=== PATIENT | male | born 1940 | race Caucasian/White ===

== ENCOUNTER → 2019-12-05 16:22 | Outpatient (CLI) | payer MEDICARE, SELFPAY ==
[2019-12-05 16:58] LABS: Absolute Lymphocyte Count 2.13 X10^3/uL (0.83-4.51); Absolute Neutrophil Count 7.8 X10^3/uL (2.0-7.7); Basophil# 0.06 X10^3/uL; Basophil% 0.5 % (0-1); Eosinophil# 0.22 X10^3/uL; Eosinophils% 1.9 % (0-5); Hematocrit 35.1 % (40-54); Hemoglobin 11.6 g/dL (13.0-16.5); Lymphocyte # 2.13 X10^3/ul (4.0); Lymphocyte % 18.7 % (19-41); Mean Corpuscular Hgb 30.1 pg (27.0-32.0); Mean Corpuscular Volume 91.2 fL (80-94); Mean Platelet Vol. 11.8 fl (6.2-12.0); Monocyte# 1.14 X10^3/uL; NRBC Flagged by Analyzer 0 % (0-5); Neutrophil # 7.79 X10^3/uL (2.7-7.7); Neutrophil % 68.2 % (47-70); Platelet Count 321 K/mm3 (150-450); RBC Distribution Width CV 13.3 % (11.6-14.6); RBC Distribution Width SD 44.3 fl (35.1-43.9); Red Blood Count 3.85 M/mm3 (4.6-6.2); White Blood Count 11.4 K/mm3 (4.4-11.0)
[2019-12-05 17:05] LABS: Erythrocyte Sedimentation Rate 53 mm/hr (0-20)
[2019-12-05 17:21] LABS: ALB/GLOB Ratio 0.7 RATIO (0.9-2.4); AST(SGOT) 34 U/L (15-37); Alanine Aminotransfer ALT/SGPT 39 U/L (16-61); Albumin, Serum 2.9 g/dL (3.2-5.0); Alkaline Phosphatase 167 U/L (45-117); Anion Gap 7 (5-15); BUN 31 mg/dL (7-18); BUN/Creat Ratio 16.8 RATIO (10-20); Calcium,Total 8.7 mg/dL (8.5-10.1); Chloride 105 mmol/L (98-107); Creatinine, Serum 1.85 mg/dL (0.70-1.30); EST Glomerular Filtration Rate 37 mL/min (>60); Est Glom Filt Rate - Afr Amer 45 mL/min (>60); Globulin 4.1 g/dL (2.2-4.2); Glucose 157 mg/dL (74-106); Potassium 4.2 mmol/L (3.5-5.1); Sodium Level 136 mmol/L (136-145)
== END ==
PROVIDERS: PCP Family Medicine; Referring Provider Nurse Practitioner Primary Care; Visit Provider Nurse Practitioner Primary Care
DX: R10.33 Periumbilical pain (principal); R63.4 Abnormal weight loss
CPT/HCPCS: 80053; 85025; 85652

== ENCOUNTER → 2019-12-12 17:00 | Outpatient (CLI) | payer MEDICARE, SELFPAY ==
[2019-12-11 13:38] VITALS: BMI 34.3
--- NOTE | 2019-12-15 12:18 | HP_ITS ---
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 Accompanied by: Son Is patient in pain?: Yes Allergies No Known Allergies Allergy (Unverified 12/15/19 07:17) Medications atorvastatin 40 mg tablet 40 mg PO DAILY 12/11/19 [History Confirmed 12/15/19] carvedilol 25 mg tablet 25 mg PO BID 12/11/19 [History Confirmed 12/15/19] lisinopril 10 mg-hydrochlorothiazide 12.5 mg tablet 1 tab PO DAILY 12/11/19 [History Confirmed 12/15/19] [facility] Medical History ASHD (arteriosclerotic heart disease) (Acute) Abdominal pain (Acute) Arthritis (Acute) Hyperlipidemia (Acute) Obesity (Acute) Psoriasis (Acute) Chronic kidney disease (Chronic) Hypertension (Chronic) Surgical History History of heart artery stent (Acute) History of hernia surgery (Acute) Social History (Updated 12/15/19 @ 12:[address] Aramis Del Rosario MD) Smoking Status: Never smoker alcohol intake: never substance use type: does not use HPI HPI HPI: HEATHER HERNANDEZ, is a 79 M who presents to the office today for HPI HPI Surgical H&P: Yes HPI: HEATHER HERNANDEZ, is a 79 M who presents to the office today for Evaluation for endoscopy. Patient had a recent CAT scan completed at the [facility] which showed bowel wall thickening with irregularity visualized in the duodenum predominantly involving the second segment with soft tissue stranding. Patient has had a loss in appetite for about the last 3 to 4 weeks he is lost 15 pounds. He has stopped his 79 aspirin and his Mobic. ROS General General: Yes weight change; no appetite, fatigue, colon cancer, breast cancer or weakness HEENT HEENT: No difficulty swallowing, eye injury, eye surgery, swollen glands or hoarseness Endo Endocrine: No thyroid disease, diabetes mellitus, thyroid cancer, Hair loss, heat intolerance or cold intolerance Skin Skin: No rash or changing moles Breast Breast: No left breast lump, right breast lump, nipple discharge, breast pain, abnormal mammogram, abnormal US or breast enlargement Musc Musculoskeletal: Yes arthritis; no back problems, rheumatoid arthritis, gout or joint pain Cardio Cardiovascular: Yes heart disease, high blood pressure and heart stent; no murmur, pacemaker, atrial fibrillation, heart attack, palpitations, shortness of breat with exertion or chest pain Psych Psychiatric: No depression, anxiety or hearing voices Resp Respiratory: No shortness of breath, No sleep apnea, No cough, No COPD, No asthma, No emphysema, No wheezing Gastro Gastrointestinal: Yes abdominal pain, Yes nausea or vomiting, No diarrhea, No constipation, No blood in stool, No acid reflux, No hemorrhoids, No ulcers, No gallbladder problem, No black,tarry stools [place] Hematologic: No blood thinners, No blood disorders, No bleeding, No anemia, No blood clots Neuro Neurologic: No system reviewed and no additional complaints, except as docu, No as per HPI, No abnormal walking, No abnormal hearing, No abnormal movements, No abnormal speech, No behavioral changes, No burning sensations, No confusion, No seizure-like activity, No unsteadiness, No dizziness, No localized weakness, No frequent falls, No headache(s), No lack of coordination, No loss of vision, No memory loss, No numbness, No other visual disturbances, No radiating pain, No restless legs, No sensory deficit, No fainting, No tingling, No tremor(s), No weakness, No other Exam Const General: no acute distress, well developed, well hydrated Orientation: oriented to person, oriented to place, oriented to time [facility] Head: normocephalic, atraumatic Ears: external ears normal Mouth: moist mucous membranes Eyes Sclera: sclerae normal Pupils: normal by confrontation Neck Neck: no lymphadenopathy noted Neck mass: No Thyroid: thyroid normal, symmetrical Chest Chest palpation & inspection: normal inspection of the chest Breast Palpation: No nipple discharge Resp Effort & Inspection: normal respiratory effort Auscultation: clear to auscultation bilaterally Percussion: percussion normal Cardio Rate: regular rate Rhythm: regular rhythm Heart Sounds: no murmurs GI Palpation: soft, no hepatosplenomegaly, no masses, nontender Rectal Exam: other Other: Rectal exam deferred. Extrem General: normal to inspection, no clubbing, cyanosis or edema Assessment & Plan Problems 1. Abnormal CT scan, gastrointestinal tract R93.3 Plan I have discussed the above with the patient. I have offered the patient esophagogastroduodenoscopy for evaluation. I have explained the risks/benefits of the procedure and described the procedure. I have discussed the risks with the patient, including but not limited to: infection, bleeding, perforation of the GI tract requiring emergency surgery, inability to complete the procedure, injury to any internal organs, complications of anesthesia, etc. - the patient understands and agrees to proceed. I have answered all the patient's questions to the patient's satisfaction and the patient has no further questions. The patient has been given instructions for the colon cleansing preparation. Coding Level of Care Code Off vis,new,level [address] scan, gastrointestinal tract R93.3 COVID (Procedure Consent) Procedure Criteria Procedure Criteria: Yes Elective The surgeon/proceduralist and patient have discussed in detail the risk of exposure to and/or potential harm posed by the COVID-19 virus with having a surgery/procedure at this time versus the risk of? delaying the surgery/procedure. It is not possible to know either the risk of delaying the surgery or procedure or chance of getting an infection with perfect accuracy, but a joint decision was made between the patient and the surgeon/proceduralist ?to proceed at this time with the scheduled surgery/procedure as indicated on the consent form. 12/15/19 1219 <Electronically signed by Aramis robbins MD> Date _ Aramis Del Rosario MD
== END ==
PROVIDERS: Anesthesiology; PCP Family Medicine; Visit Provider Surgery
DX: Z11.59 Encounter for screening for other viral diseases (principal)
CPT/HCPCS: 87635; 94799; U0003

== ENCOUNTER 2019-12-15 07:16 | Observation (INO) | payer MEDICARE, SELFPAY ==
[2019-12-11 13:38] VITALS: BMI 34.3
[2019-12-15] VITALS (7 sets, daily range): BP systolic 81–136; BP diastolic 54–73; PULSE 58–69; RESP 16–18; TEMP 36.1–36.7; O2SAT 96–100; BMI 32.4; BMI 32.8; BMI 33.7
[2019-12-15 07:58] LABS: Absolute Lymphocyte Count 1.91 X10^3/uL (0.83-4.51); Absolute Neutrophil Count 12.7 X10^3/uL (2.0-7.7); Basophil# 0.07 X10^3/uL; Basophil% 0.4 % (0-1); Eosinophil# 0.07 X10^3/uL; Eosinophils% 0.4 % (0-5); Hematocrit 30.5 % (40-54); Hemoglobin 10.3 g/dL (13.0-16.5); Lymphocyte # 1.91 X10^3/ul (4.0); Lymphocyte % 11.8 % (19-41); Mean Corp Hgb Conc 33.8 g/dL (32-36); Mean Corpuscular Volume 88.9 fL (80-94); Mean Platelet Vol. 10.9 fl (6.2-12.0); Monocyte# 1.14 X10^3/uL; Monocyte% 7.1 % (0-10); NRBC Flagged by Analyzer 0 % (0-5); Neutrophil # 12.71 X10^3/uL (2.7-7.7); Neutrophil % 78.8 % (47-70); Platelet Count 344 K/mm3 (150-450); RBC Distribution Width CV 13.1 % (11.6-14.6); RBC Distribution Width SD 42.3 fl (35.1-43.9); Red Blood Count 3.43 M/mm3 (4.6-6.2); White Blood Count 16.1 K/mm3 (4.4-11.0)
[2019-12-15] MEDS: fentaNYL 100 MCG/2 ML Ampul 50 MCG IV (08:01)
[2019-12-15 08:14] LABS: ALB/GLOB Ratio 0.6 RATIO (0.9-2.4); AST(SGOT) 26 U/L (15-37); Alanine Aminotransfer ALT/SGPT 22 U/L (16-61); Albumin, Serum 2.6 g/dL (3.2-5.0); Alkaline Phosphatase 162 U/L (45-117); Anion Gap 9 (5-15); BUN 45 mg/dL (7-18); BUN/Creat Ratio 27.4 RATIO (10-20); Calcium,Total 8.5 mg/dL (8.5-10.1); Chloride 98 mmol/L (98-107); Creatinine, Serum 1.64 mg/dL (0.70-1.30); EST Glomerular Filtration Rate 43 mL/min (>60); Est Glom Filt Rate - Afr Amer 52 mL/min (>60); Estimated Creatinine Clearance 33.03 ml/min; Globulin 4.2 g/dL (2.2-4.2); Glucose 133 mg/dL (74-106); Lipase 120 U/L (73-393); Potassium 4.2 mmol/L (3.5-5.1); Protein, Total 6.8 g/dL (6.4-8.2); Sodium Level 129 mmol/L (136-145)
--- NOTE | 2019-12-15 08:28 | CT_ITS ---
STUDY: CT ABDOMEN AND PELVIS WITHOUT CONTRAST REASON FOR EXAM: Male, 79 years old. WEAKNESS, BLACK STOOL, ABD PAIN X 2 WEEKS RADIATION DOSAGE (If Supplied By Facility): CTDIvol = ( 19.69 ) mGy, DLP = ( 1093.46 ) mGycm TECHNIQUE: Transaxial images were obtained from the dome of the diaphragm to the symphysis pubis without oral contrast, and without intravenous contrast. Sagittal and coronal images were reconstructed. Individualized dose optimization techniques were used for this CT. COMPARISON: Comparison is made with prior outside study dated 12/08/2019. FINDINGS: The visualized lung bases are unremarkable. Coronary artery calcification. Normal liver. Mild distention of the gallbladder. Normal spleen. Increased markings with peripancreatic inflammatory changes seen in the region of the head of the pancreas. There is a thickening of the adjacent descending portion of the duodenum with probable moderate size diverticulum. Nonspecific right perinephric stranding. Normal bilateral adrenal glands. Normal right kidney. There is a 3.7 cm x 3.9 cm cyst in the upper lateral portion of the left kidney. There is a small hiatal hernia. Normal small intestine. There are multiple colonic diverticula consistent with diverticulosis. The appendix is visualized and appears normal. Normal abdominal aorta. Normal inferior vena cava. Normal retroperitoneum. Normal urinary bladder. There is enlargement of the prostate gland. The prostate measures 4.5 cm x 4.9 cm. This causes indentation at the bladder base. Moderate sized umbilical hernia containing fat. The neck of the hernia measures 4.6 cm. Small right inguinal hernia containing fat. There are diffuse degenerative changes of the visualized lumbar spine. Grade 1 anterolisthesis of L5 on S1 with spondylolysis of the pars interarticularis of the L5 vertebrae. CT/Abdomen/Pelvis without Cont IMPRESSION: Essentially stable examination with evidence of a findings suggestive of pancreatitis involving the head of the pancreas and thickening of the descending portion of the duodenum with the a diverticulum. Electronically Signed: Tra Webb, at 9:32 EDT , Service support ,
[2019-12-15 08:42] LABS: International Normalized Ratio 1.2; Prothrombin Time (Protime)PT. 14.9 SECONDS (11.7-14.9)
--- NOTE | 2019-12-15 08:43 | ED.DCSUM_ITS ---
- ER Visit Summary Date of Service: 12/15/19 Chief Complaint: Abdominal pain History of Present Illness: The patient is a [address] Arsenio Lamas and Dr. Del Rosario. He reports he had upper abdominal pain for the past 2 to 3 weeks. Is an aching pain 8-10 at worst and 3-10 currently. Is worsened by nothing. Is taking Tylenol without relief. Reports is been nauseated and last vomited 2 days ago. There is no blood or coffee grounds in his emesis. Reports he had a poor appetite. Patient reports that he had a black tarry stool yesterday twice. He has not had that today. He denies dysuria. He reports he is having a difficult time initiating stream, but feels as though he is emptying well. Patient saw Dr. Del Rosario in the office last night and is actually scheduled to have endoscopy. States that when he was seen in his blood pressure was 112/60. On review of systems he complains of generalized weakness and chills. He denies any other complaints. Physical Examination: Vitals: 97.0, 85/54, 69, 17, 97% room air which is not hypoxic. General: Well-nourished and well-developed. Head: Normocephalic atraumatic. Neck: Supple, no lymphadenopathy. No JVD. Nontender. Cardiovascular: Regular rate and rhythm. No murmurs. Respiratory: No respiratory distress. Clear to auscultation bilaterally. Abdominal: Soft, mild epigastric tenderness to palpation, nondistended, normal bowel sounds. No guarding, rebound, or peritoneal signs. Back: Nontender. Extremities: Nontender, no edema. Skin: Normal color, no rash. Neurologic: Alert and oriented ?3. Cranial nerves II through XII are intact. Normal strength and sensation. Psych: Normal affect. Test Results: CBC shows a white count of 16.1 with 79 segmented neutrophils, 12 lymphocytes, and 1.5% immature granulocytes. H&H is 10.3 and 30.5. Hemoglobin was 11.610 days ago. Chem-7 shows a sodium 129, glucose 133, BUN of 45, creatinine 1.64. Creatinine was 1.8 510 days ago. LFTs show an albumin of 2.6. Lipase is normal. Coags are normal. Clinical Impression(s) from Imaging Studies Abdomen/Pelvis CT 12/15/19 08:28 IMPRESSION: Essentially stable examination with evidence of a findings suggestive of pancreatitis involving the head of the pancreas and thickening of the descending portion of the duodenum with the a diverticulum. Electronically Signed: Tra Webb, at 9:32 EDT , Service support , Emergency Department Course and Treatment: Patient was given a dose of fentanyl and Protonix IV. His blood pressure decreased into the 80s when he stands. He will require admission. Treatment Plan: The patient was discussed with Dr. Del Rosario and Dr. Hayden. He will be admitted to the hospital for further evaluation and treatment. Disposition: Admitted in improved condition. Impression: 1. Upper GI bleed. 2. Hypertension. 3. Leukocytosis. 4. Pancreatitis. This note was generated with [employer] dictation software. It may contain incorrect words, spelling, and punctuation that were not noted in review of the chart prior to signing ED Disposition - Plan for ED Patient: Referrals: Arsenio Lamas III, MD [Primary Care Provider] -
[2019-12-15 08:50] LABS: Partial Thromboplast Time 31.6 Seconds (24.1-36.2)
--- NOTE | 2019-12-15 10:19 | NURSING ---
MED SURG TERMARGARITO PANCREATITIS, UPPER GI BLEED OBS
--- NOTE | 2019-12-15 12:34 | NT.THERAPY_ITS ---
Nutrition Therapy Report - History Nutrition Services has been consulted to:: Manage nutrient details of diet order Current diet / nutrition support order:: NPO - Anthropometric Measurements Height:: 5 ft 6 in Weight:: 94.9 kg Body Mass Index (BMI):: 33.7 - Relevant Labs Relevant Labs:: WBC 16.1 K/mm3 (4.4-11.0) H 12/15/19 07:45 RBC 3.43 M/mm3 (4.6-6.2) L 12/15/19 07:45 Hgb 10.3 g/dL (13.0-16.5) L 12/15/19 07:45 Hct 30.5 % (40-54) L 12/15/19 07:45 Immature Gran % (Auto) 1.500 % (0.0-0.9) H 12/15/19 07:45 Neut % (Auto) 78.8 % (47-70) H 12/15/19 07:45 Lymph % (Auto) 11.8 % (19-41) L 12/15/19 07:45 Absolute Neuts (auto) 12.7 X10^3/uL (2.0-7.7) H 12/15/19 07:45 Sodium 129 mmol/L (136-145) L 12/15/19 07:45 BUN 45 mg/dL (7-18) H 12/15/19 07:45 Creatinine 1.64 mg/dL (0.70-1.30) H 12/15/19 07:45 Est GFR (MDRD) Af Amer 52 mL/min (>60) L 12/15/19 07:45 Est GFR (MDRD) Non-Af 43 mL/min (>60) L 12/15/19 07:45 BUN/Creatinine Ratio 27.4 RATIO (10-20) H 12/15/19 07:45 Glucose 133 mg/dL (74-106) H 12/15/19 07:45 Alkaline Phosphatase 162 U/L (45-117) H 12/15/19 07:45 Albumin 2.6 g/dL (3.2-5.0) L 12/15/19 07:45 Albumin/Globulin Ratio 0.6 RATIO (0.9-2.4) L 12/15/19 07:45 - Assessment Food / Nutrition-Related History:: Pt states limits salt in diet at home - 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 No issues eating/swallowing. UBW: 99.79 kg - wt loss of 5% x 2 wks (significant). Pt w/ black diarrhea yesterday. Pt agreeable to ONS at [facility] when po diet resumes. [ End ] - Nutrition Diagnosis Problem / Etiology / Signs & Symptoms (PES):: Pt with suboptimal oral intake r/t not feeling well and no appetite AEB 5% wt loss x 2 wks. [ End ] Evidence of Malnutrition Exists:: Yes - Nutrition Intervention Nutrition Prescription:: [id number] raquel / 90-100 gm pro / day - Food / Nutrient Delivery Interventions Summary of nutrition intervention:: As medically able, rec MARYBETH to Cardiac / Sodium restricted d/t pmhx. Rec 120 cc Ensure Enlive 4x/day w/ medpass when po diet resumes. [ End ] Nutrition support ordered as / adjusted to:: As medically able, rec MARYBETH to Cardiac / Sodium restricted d/t pmhx. Rec 120 cc Ensure Enlive 4x/day w/ medpass when po diet resumes. [ End ] Nutrition education provided?: No - MNT Monitoring Further MNT monitoring and evaluation required?: Yes MNT Follow-up in:: 3-5 days - if questions or concerns call RD/LD with [phone]
[2019-12-15] MEDS: 0.9% Normal Saline 1,000 ML 175 ML IV ×2 (12:51→18:36)
[2019-12-15] MEDS: 0.9% Saline Lock 10 ML Syringe IV (12:52)
[2019-12-15] MEDS: Pantoprazole Sodium 40 MG Tablet PO (13:00)
--- NOTE | 2019-12-15 14:08 | HP.PCM_ITS ---
Problem List (1) Acute blood loss anemia Status: Acute (2) Hyponatremia Status: Acute (3) CAD (coronary artery disease) Status: Chronic (4) HTN (hypertension) Status: Chronic (5) HLD (hyperlipidemia) Status: Chronic History of Present Illness Date of Admission: 12/15/19 Chief Complaint: abdominal pain The patient is a 79 year old M with pmhx of CAD with prior stent, HTN, HLD who presented to the ER with c/o abdominal pain. The patient has been having pain for 2-3 weeks. He was initially evaluated at [facility], had a CT, and was told he needed surgery. He then followed up with Dr. Del Rosario who planned to do endoscopy as an outpatient this coming Sunday. The patient had worsening of abdominal pain however and came to the ER today. CT in the ER is suggestive of pancreatitis however the patient has a normal lipase. The patient also developed black stools with 2 episodes of diarrhea yesterday. He is somewhat anemic in the ER with Hgb 10.3. He does take Mobic and baby aspirin at home. He had one episode of nausea/vomiting 2 days ago. He also has lost about 10 lbs in the past three we eks. He is also hyopnatremia. He denies personal or family hx of cancer. He currently has no pain and had complete relief in the ER after receiving fentanyl. He is agreeable to endoscopy tomorrow. He denies recent illness or infection. He has no cough, SOB, fevers, or chills.[] Past Medical History Past Medical History (Chronic Problems): Chronic Problems (Last Reviewed 12/15/19 @ 12:[address] Aramis Del Rosario MD) CAD (coronary artery disease) (Chronic) HTN (hypertension) (Chronic) HLD (hyperlipidemia) (Chronic) Medical History: Medical History (Last Reviewed 12/15/19 @ 12:[address] Aramis Del Rosario MD) ASHD (arteriosclerotic heart disease) I25.10 Abdominal pain R10.9 Arthritis M19.90 Hyperlipidemia E78.5 Obesity E66.9 Psoriasis L40.9 Chronic kidney disease N18.9 Hypertension I10 Allergies No Known Allergies Allergy (Unverified 12/15/19 07:17) Home Medications: Ambulatory Orders Medication Instructions Recorded atorvastatin 40 mg tablet 40 mg PO DAILY 12/11/19 carvedilol 25 mg tablet 25 mg PO BID 12/11/19 lisinopril 10 1 tab PO DAILY 12/11/19 mg-hydrochlorothiazide 12.5 mg tablet Aspirin, Baby 81 mg PO DAILY 12/15/19 Meloxicam 15 mg PO DAILY PRN 12/15/19 Surgical History: Surgical History (Last Reviewed 12/15/19 @ 12:[address] Aramis Del Rosario MD) History of heart artery stent Z95.5 History of hernia surgery Z98.890, Z87.19 Surgical History: herniorrhaphy - [place] 1994., tonsillectomy Psychiatric History: No pertinent psych hx Lives: Alone Smoking Status: Never smoker Tobacco Use: Non-smoker Alcohol: None Drugs: None - *Family History Maternal History Items: - - denies CAD, cancer, stroke, DM Paternal History Items: Heart Disease Review of Systems Constitutional: Reports: Weakness, Weight Change. Denies: Chills, Fever HEENT: Denies: Head Aches, Sinus Congestion, Sinus Drainage Cardiovascular: Denies: Chest Pain, Palpitations Respiratory: Denies: Cough, Shortness of breath at rest, Sputum production Gastrointestinal: Reports: Abdominal Pain, Diarrhea, Nausea, Melena, Vomiting Genitourinary: Denies: Dysuria Musculoskeletal: Denies: Joint Pain, Joint Tenderness Skin: Denies: Rash, Wounds Neurological: Denies: Numbness, Tingling, Focal weakness Psychiatric: Denies: Anxiety, Depression, Homicidal Ideations, Suicidal Ideations Hematologic/ Lymphatic: Denies: Easy Bruising, Easy Bleeding VTE Information - Inpt Only VTE Present on Admission: No VTE Mechan Device Prophylaxis: SCD's VTE Pharm Prophylaxis ordered?: No Patient Problems: Active and Suspected Problems (Last Reviewed 12/15/19 @ 12:[address] Aramis Del Rosario MD) Acute blood loss anemia (Acute) Hyponatremia (Acute) - Physical Exam Vitals/I&O's: Vital Signs Temp Pulse Resp BP Pulse Ox 97.7 F L 69 18 136/73 H 97 12/15/19 12:07 12/15/19 12:07 12/15/19 12:07 12/15/19 12:07 12/15/19 12:07 Oxygen Delivery Method Room Air Weight: 209 lb 3.499 oz Body Mass Index (BMI) 33.7 Intake and Output for Last 24 Hours 12/13/19 12/14/19 12/15/19 23:59 23:59 23:59 Intake Total 535 / 535 Balance 535 / 535 General: Alert, Oriented x3, Cooperative HEENT: Atraumatic, PERRLA, EOMI, Normocephalic Neck: Supple, No JVD, Negative Carotid Bruits Lungs: Clear to auscultation, Normal air movement Cardiovascular: Regular rate, No murmurs Abdomen: Bowel Sounds Present, Soft, Non Tender Extremities: No edema, Capillary Refill Less than 3 Seconds Skin: No rashes, No breakdown Musculoskeletal: No Tenderness to Palpation of Joints or Extremities Neurological: Cranial nerves II-XII grossly intact Psych/Mental Status: Normal Affect, Appropriate, Alert and oriented to time, place, person, mood and affect Laboratory Results 12/15/19 07:45: WBC 16.1 H, RBC 3.43 L, Hgb 10.3 L, Hct 30.5 L, MCV 88.9, MCH 30.0, MCHC 33.8, RDW Std Deviation 42.3, RDW Coeff of [place] 13.1, Plt Count 344, MPV 10.9, Immature Gran % (Auto) 1.500 H, Neut % (Auto) 78.8 H, Lymph % (Auto) 11.8 L, [place] % (Auto) 7.1, Eos % (Auto) 0.4, Baso % (Auto) 0.4, Absolute Neuts (auto) 12.7 H, Absolute Lymphs (auto) 1.91, Nucleated RBC % 0 12/15/19 07:45: PT 14.9, INR 1.2, APTT 31.6 12/15/19 07:45: Sodium 129 L, Potassium 4.2, Chloride 98, Carbon Dioxide 22.0, Anion Gap 9, BUN 45 H, Creatinine 1.64 H, Estim Creat Clear Calc 33.03, Est GFR (MDRD) Af Amer 52 L, Est GFR (MDRD) Non-Af 43 L, BUN/Creatinine Ratio 27.4 H, Glucose 133 H, Calcium 8.5, Total Bilirubin 0.50, AST 26, ALT 22, Alkaline Phosphatase 162 H, Total Protein 6.8, Albumin 2.6 L, Globulin 4.2, Albumin/Globulin Ratio 0.6 L, Lipase 120 12/15/19 07:45: Blood Type O POSITIVE, Antibody Screen NEGATIVE 12/15/19 13:35: COVID-19 (DOUG) Pending Current Medications Acetaminophen (Tylenol) 650 mg PO Q6H PRN PRN PRN Reason: Pain Score 1-10/Temp > 100.7 F Atorvastatin Calcium (Lipitor) 40 mg PO QHS ABBY Carvedilol (Coreg) 25 mg PO BIDCM [facility] Sodium Chloride () 1,000 mls @ 175 mls/hr IV .[id number] ABBY Last Admin: 12/15/19 12:51 Dose: 175 mls/hr Documented by: Morphine Sulfate () 4 - 6 mg IV Q3H PRN PRN PRN Reason: Pain Score 6-10/10 Oxycodone HCl (Oxyir) 10 mg PO Q4H PRN PRN PRN Reason: Pain Score 4-5/10 Pantoprazole Sodium (Protonix) 40 mg PO DAILY ABBY Sodium Chloride () 10 - 40 ml IV UD PRN PRN Reason: SALINE FLUSH Last Admin: 12/15/19 12:52 Dose: 10 ml Documented by: Assessment/Plan All Active Problems (Last Reviewed 12/15/19 @ 12:[address] Aramis Del Rosario MD) Acute blood loss anemia (Acute) Hyponatremia (Acute) 1. Acute blood loss anemia presumed 2/2 GI bleed, with Abd pain - 2x black stools with diarrhea yesterday. Htb 10.3, normocytic. Pt does take mobic and aspirin daily. Start protonix. He is also hyponatremic and has had recent weight loss raising suspicion for cancer. CT shows possible pancreatitis however his lipase is normal. Alk phos is elevated at 162, T bili normal. Covid Pending. Leukocytosis present however no clear infectious cause. - General surgery consult, endoscopy in the morning. 2. Hyponatremia - DC HCTZ. Provide IV NS. 3. CKDIII - trend. Not significantly elevated compared to prior. 4. CAD - hold aspirin. 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 Prior stent in 2005. may continue coreg/statin/carmen. 5. Obesity - consult floor specialist. 10 lb weight loss in last 3 weeks. DVT ppx: scd's This patient was seen by Bryce Cervantes PA-C under the supervision of Dr. Hayden.
--- NOTE | 2019-12-15 16:10 | PCM.CONS.GEN ---
Problem List (1) Abnormal CT scan Status: Acute Reason for Consult Date of Consultation: 12/15/19 History of Present Illness: The patient is a 79 year old M with pmhx of CAD with prior stent, HTN, HLD who presented to the ER with c/o abdominal pain. The patient has been having pain for 2-3 weeks. He was initially evaluated at [facility], had a CT, and was told he needed surgery. He then followed up with Dr. Del Rosario who planned to do endoscopy as an outpatient this coming Sunday. The patient had worsening of abdominal pain however and came to the ER today. CT in the ER is suggestive of pancreatitis however the patient has a normal lipase. The patient also developed black stools with 2 episodes of diarrhea yesterday. He is somewhat anemic in the ER with Hgb 10.3. He does take Mobic and baby aspirin at home. He had one episode of nausea/vomiting 2 days ago. He also has lost about 10 lbs in the past three weeks. He is also hyopnatremia. He denies personal or family hx of cancer. He currently has no pain and had complete relief in the ER after receiving fentanyl. He is agreeable to endoscopy tomorrow. He denies recent illness or infection. He has no cough, SOB, fevers, or chills. Past Medical History Past Medical History (Chronic Problems): Chronic Problems (Last Reviewed 12/15/19 @ 12:[address] Aramis Del Rosario MD) CAD (coronary artery disease) (Chronic) HTN (hypertension) (Chronic) HLD (hyperlipidemia) (Chronic) Medical History: Medical History (Last Reviewed 12/15/19 @ 16:[address] Aramis Del Rosario MD) ASHD (arteriosclerotic heart disease) I25.10 Abdominal pain R10.9 Arthritis M19.90 Hyperlipidemia E78.5 Obesity E66.9 Psoriasis L40.9 Chronic kidney disease N18.9 Hypertension I10 Allergies No Known Allergies Allergy (Unverified 12/15/19 07:17) Home Medications: Ambulatory Orders Medication Instructions Recorded atorvastatin 40 mg tablet 40 mg PO DAILY 12/11/19 carvedilol 25 mg tablet 25 mg PO BID 12/11/19 lisinopril 10 1 tab PO DAILY 12/11/19 mg-hydrochlorothiazide 12.5 mg tablet Aspirin, Baby 81 mg PO DAILY 12/15/19 Meloxicam 15 mg PO DAILY PRN 12/15/19 Surgical History: Surgical History (Last Reviewed 12/15/19 @ 16:[address] Aramis Del Rosario MD) History of heart artery stent Z95.5 History of hernia surgery Z98.890, Z87.19 Surgical History: herniorrhaphy - [place] 1994., tonsillectomy Psychiatric History: No pertinent psych hx Lives: Alone Smoking Status: Never smoker Tobacco Use: Non-smoker Alcohol: None Drugs: None - *Family History Maternal History Items: - - denies CAD, cancer, stroke, DM Paternal History Items: Heart Disease Review of Systems Constitutional: Denies: Chills, Fever, Weight Change Cardiovascular: Denies: Chest Pain, Chest Pressure, Chest Tightness, Palpitations Respiratory: Denies: Cough, Hemoptysis, Shortness of breath at rest, Shortness of breath upon exertion, Wheezing Gastrointestinal: Reports: Abdominal Pain Genitourinary: Denies: Dysuria, Frequency, Hematuria, Urgency Patient Problems: Active and Suspected Problems (Last Reviewed 12/15/19 @ 12:[address] Aramis Del Rosario MD) Acute blood loss anemia (Acute) Hyponatremia (Acute) Abnormal CT scan (Acute) - Physical Exam Vitals/I&O's: Vital Signs Temp Pulse Resp BP Pulse Ox 97.6 F L 63 18 119/70 98 12/15/19 15:02 12/15/19 15:02 12/15/19 15:02 12/15/19 15:02 12/15/19 15:02 Oxygen Delivery Method Room Air Weight: 209 lb 3.499 oz Body Mass Index (BMI) 33.7 Intake and Output for Last 24 Hours 12/13/19 12/14/19 12/15/19 23:59 23:59 23:59 Intake Total 535 / 535 Balance 535 / 535 General: Alert, Oriented x3 Lungs: Clear to auscultation Cardiovascular: Regular rate, Regular Rhythm, No murmurs Abdomen: Bowel Sounds Present, Soft, Non Tender, Non-Distended Laboratory Results 12/15/19 07:45: WBC 16.1 H, RBC 3.43 L, Hgb 10.3 L, Hct 30.5 L, MCV 88.9, MCH 30.0, MCHC 33.8, RDW Std Deviation 42.3, RDW Coeff of Chikis 13.1, Plt Count 344, MPV 10.9, Immature Gran % (Auto) 1.500 H, Neut % (Auto) 78.8 H, Lymph % (Auto) 11.8 L, [place] % (Auto) 7.1, Eos % (Auto) 0.4, Baso % (Auto) 0.4, Absolute Neuts (auto) 12.7 H, Absolute Lymphs (auto) 1.91, Nucleated RBC % 0 12/15/19 07:45: PT 14.9, INR 1.2, APTT 31.6 12/15/19 07:45: Sodium 129 L, Potassium 4.2, Chloride 98, Carbon Dioxide 22.0, Anion Gap 9, BUN 45 H, Creatinine 1.64 H, Estim Creat Clear Calc 33.03, Est GFR (MDRD) Af Amer 52 L, Est GFR (MDRD) Non-Af 43 L, BUN/Creatinine Ratio 27.4 H, Glucose 133 H, Calcium 8.5, Total Bilirubin 0.50, AST 26, ALT 22, Alkaline Phosphatase 162 H, Total Protein 6.8, Albumin 2.6 L, Globulin 4.2, Albumin/Globulin Ratio 0.6 L, Lipase 120 12/15/19 07:45: Blood Type O POSITIVE, Antibody Screen NEGATIVE 12/15/19 13:35: COVID-19 (DOUG) Pending Current Medications Acetaminophen (Tylenol) 650 mg PO Q6H PRN PRN PRN Reason: Pain Score 1-10/Temp > 100.7 F Atorvastatin Calcium (Lipitor) 40 mg PO QHS [facility] Carvedilol (Coreg) 25 mg PO BIDCM [facility] Sodium Chloride () 1,000 mls @ 175 mls/hr IV .Q5H43M [facility] Last Admin: 12/15/19 12:51 Dose: 175 mls/hr Documented by: Morphine Sulfate () 4 - 6 mg IV Q3H PRN PRN PRN Reason: Pain Score 6-10/10 Oxycodone HCl (Oxyir) 10 mg PO Q4H PRN PRN PRN Reason: Pain Score 4-5/10 Pantoprazole Sodium (Protonix) 40 mg PO DAILY [facility] Sodium Chloride () 10 - 40 ml IV UD PRN PRN Reason: SALINE FLUSH Last Admin: 12/15/19 12:52 Dose: 10 ml Documented by: Assessment/Plan All Active Problems (Last Reviewed 12/15/19 @ 12:[address] Aramis Del Rosario MD) Acute blood loss anemia (Acute) Hyponatremia (Acute) Abnormal CT scan (Acute) I have explained the risks/benefits of the procedure and described the procedure. I have discussed the risks with the patient, including but not limited to: infection, bleeding, perforation of the GI tract requiring emergency surgery, inability to complete the procedure, injury to any internal organs, complications of anesthesia, etc. - the patient understands and agrees to proceed. I have answered all the patient's questions to the patient's satisfaction and the patient has no further questions. The patient has been given instructions for the colon cleansing preparation. The plan is to perform an EGD tomorrow morning. Procedure Criteria Procedure Type: Elective COVID Risk Discussion: The surgeon/proceduralist and patient have discussed in detail the risk of exposure to and/or potential harm posed by the COVID-19 virus with having a surgery/procedure at this time versus the risk of delaying the surgery/procedure. It is not possible to know either the risk of delaying the surgery or procedure or chance of getting an infection with perfect accuracy, but a joint decision was made between the patient and the surgeon/proceduralist to proceed at this time with the scheduled surgery/procedure as indicated on the consent form. Office Visits / Consults: [id number] IP Consult L3
[2019-12-15] MEDS: Carvedilol 25 MG Tablet PO (17:12)
[2019-12-15] MEDS: Atorvastatin Calcium 40 MG Tablet PO (21:44)
[2019-12-16] VITALS (8 sets, daily range): BP systolic 97–120; BP diastolic 38–67; PULSE 61–69; RESP 16–18; TEMP 36.3–37.2; O2SAT 94–98; BMI 33.5
[2019-12-16] MEDS: 0.9% Normal Saline 1,000 ML 175 ML IV ×2 (00:31→05:53)
--- NOTE | 2019-12-16 05:00 | EKG12_ITS ---
Test Reason : AM EKG Blood Pressure : / mmHG Vent. Rate : 063 BPM Atrial Rate : 063 BPM P-R Int : 202 ms QRS Dur : 100 ms QT Int : 426 ms P-R-T Axes : 003 -13 -13 degrees QTc Int : 435 ms Normal sinus rhythm Normal ECG No previous ECGs available Confirmed by TEE WILLIS ([id number]), web content editor YE CESAR ([id number]) on 12/18/2019 9:11:58 AM Referred By: SHELIA Confirmed By:TEE WILLIS
[2019-12-16 06:15] LABS: Anion Gap 6 (5-15); BUN 33 mg/dL (7-18); BUN/Creat Ratio 24.4 RATIO (10-20); Calcium,Total 7.9 mg/dL (8.5-10.1); Chloride 109 mmol/L (98-107); Creatinine, Serum 1.35 mg/dL (0.70-1.30); EST Glomerular Filtration Rate 54 mL/min (>60); Est Glom Filt Rate - Afr Amer 65 mL/min (>60); Estimated Creatinine Clearance 38.73 ml/min; Glucose 92 mg/dL (74-106); Sodium Level 137 mmol/L (136-145)
[2019-12-16 06:55] LABS: Total Cells Counted 100 (MANUAL DIFF)
[2019-12-16 06:56] LABS: Differential Comment MANUAL DIFF; Lymphocyte 24 % (19-41); Monocyte 6 % (0-10); Platelet Estimate ADEQUATE (ADEQ); Red Cell Morphology NORM C+C NORMAL (NORM C&C)
[2019-12-16 07:10] LABS: Neutrophil-Segmented 70 % (47-70)
--- NOTE | 2019-12-16 07:30 | EGD_PTH ---
PATIENT: HEATHER HERNANDEZ LOC: MS3 U#:[id number] AGE/SX: 79/M ROOM: AR322 RE12/15/[address]: Dr. Robert Hayden DO : 1940 BED: 1 DIS: 12/16/2019 SPEC #: [id number] RECD: 12/16/19 10:51 STATUS: GUERO REBeny #: [id number] CASSANDRA: 12/16/19 07:[address]: Aramis Del Rosario DEPT: SURGICAL PATHOLOGY RECD BY: Naveed Arredondo ENTERED: 12/16/19 11:41 SP TYPE: EGD BIOPSY OTHR DR: MD Dr. Robert Lala III, DO Tissues: Gastric mucous membrane Procedures: Surgery Specimen Level IV HEADER OPERATION: [place] [place] DIAGNOSIS: Abnormal CT scan TISSUE SUBMITTED: Antrum biopsy for histo and H. pylori MICROSCOPIC DIAGNOSIS Antrum, biopsy: Mild gastritis. See microscopic description and comment. AGUS:anton 12/17/19 COMMENT The results of immunohistochemistry for Helicobacter pylori will be reported separately ([id number]). MICROSCOPIC DESCRIPTION Slides are reviewed. The specimen shows fragments of gastric mucosa with chronic inflammatory cell infiltrates in the lamina propria consisting of lymphocytes and plasma cells, consistent with mild chronic gastritis. GROSS DESCRIPTION Received in fixative is one container labeled with the patient's name and designated antrum biopsy. The specimen consists of one irregular fragment of light albarran soft tissue that measures 0.3 x 0.3 x 0.1 cm. The specimen is totally submitted in one cassette. / AGUS:anton 12/16/19 TC:3 CPT: 40849
--- NOTE | 2019-12-16 07:30 | IMM_PTH ---
PATIENT: HEATHER HERNANDEZ LOC: MS3 U#:[id number] AGE/SX: 79/M ROOM: PA322 RE12/15/[address]: Dr. Robert Hayden DO : 1940 BED: 1 DIS: 12/16/2019 SPEC #: [id number] RECD: 12/16/19 12:58 STATUS: SOUSerena REQ #: [id number] CASSANDRA: 12/16/19 07:[address]: Aramis Del Rosario DEPT: IMMUNOHISTOCHEMISTRY RECD BY: Haley Dumont ENTERED: 12/16/19 12:59 SP TYPE: IMMUNO OTHR DR: MD Dr. Robert Lala III, DO Tissues: Stomach, NOS Procedures: H Pylori (initial) [facility]YSICIAN [facility] INSTIT[facility] [address] [address] SPECIMEN INFORMATION: Tissue Source: Antrum biopsy Clinical Info: Abnormal CT scan Specimen Number: [id number] CPT code: 70230 METHODOLOGY: Deparaffinized sections of prefer/formalin-fixed tissue or PAP/DQ stained slides are incubated with monoclonal/polyclonal antibodies/oligonucleotide probes. Localization is made via biotin free immunoperoxidase method. Appropriate controls are performed and reacted as expected. Results on target cell population are indicated in the following table: RESULTS: ANTIBODY / CLONE RESULT H Pylori (polyclonal) negative These tests were developed and their performance characteristics determined by [facility]. They may not have been cleared or approved by the U.S. Food and Drug Administration. The FDA has determined that such clearance or approval is not necessary. INTERPRETATION: Antrum, biopsy: Negative for Helicobacter pylori organisms. SJ:anton 12/17/19
--- NOTE | 2019-12-16 07:52 | OP.EGD_ITS ---
Patient Name: Chalino Franz Procedure Date: 12/16/2019 7:33 AM Date of : 1940 Age: 79 Procedure: Upper GI endoscopy Indications: Suspected acute duodenal ulcer with hemorrhage Providers: Aramis Del Rosario MD Medicines: See the Anesthesia note for documentation of the administered medications Patient Profile: This is an 79 year old male. Refer to note in patient chart for documentation of history and physical. Complications: No immediate complications. Procedure: Pre-Anesthesia Assessment: - Prior to the procedure, a History and Physical was performed, and patient medications and allergies were reviewed. The patient's tolerance of previous anesthesia was also reviewed. The risks and benefits of the procedure and the sedation options and risks were discussed with the patient. All questions were answered, and informed consent was obtained. Prior Anticoagulants: The patient has taken no previous anticoagulant or antiplatelet agents. ASA Grade Assessment: III - A patient with severe systemic disease. After reviewing the risks and benefits, the patient was deemed in satisfactory condition to undergo the procedure. After obtaining informed consent, the endoscope was passed under direct vision. Throughout the procedure, the patient's blood pressure, pulse, and oxygen saturations were monitored continuously. The gastroscope was introduced through the mouth, and advanced to the second part of duodenum. The upper GI endoscopy was accomplished without difficulty. The patient tolerated the procedure well. Scope In: 7:41:36 AM Scope Out: 7:44:40 AM Total Procedure Duration Time 0 hours 3 minutes 4 seconds Findings: The Z-line was regular and was found 39 cm from the incisors. No biopsies or other specimens were collected for this exam. The entire examined stomach was normal. Biopsies were taken with a cold forceps for Helicobacter pylori testing. One non-bleeding cratered duodenal ulcer with adherent clot was found in the second portion of the duodenum. The lesion was 12 mm in largest dimension. No biopsies or other specimens were collected for this exam. Impression: - Z-line regular, 39 cm from the incisors. No specimens collected. - Normal stomach. Biopsied. - One non-bleeding duodenal ulcer with adherent clot. No specimens collected. Recommendation: - [facility]. - Full liquid diet today. - Use Prilosec (omeprazole) 40 mg PO daily indefinitely. - Repeat upper endoscopy in 6 weeks for surveillance. - Return to my office in 1 week. - Continue present medications. Procedure Code(s): --- Professional --- 41997, Esophagogastroduodenoscopy, flexible, transoral; with biopsy, single or multiple Diagnosis Code(s): --- Professional --- K26.4, Chronic or unspecified duodenal ulcer with hemorrhage CPT copyright 2017 [employer]. All rights reserved. The codes documented in this report are preliminary and upon deputy sheriff k9 handler review may be revised to meet current compliance requirements. MD Aramis Roland MD 12/16/2019 7:52:16 AM This report has been signed electronically. Number of Addenda: 0 Note Initiated On: 12/16/2019 7:33 AM
--- NOTE | 2019-12-16 07:53 | OP.CCLET_ITS ---
12/16/2019 Arsenio Lamas [address] [place] [address] Re : Upper GI endoscopy procedure for Chalino Franz Dear Dr. Lamas This procedure was performed on Monday, December 16, 2019. My impressions and recommendations are as follows: Impressions : - Z-line regular, 39 cm from the incisors. No specimens collected. - Normal stomach. Biopsied. - One non-bleeding duodenal ulcer with adherent clot. No specimens collected. Recommendations : - [facility]. - Full liquid diet today. - Use Prilosec (omeprazole) 40 mg PO daily indefinitely. - Repeat upper endoscopy in 6 weeks for surveillance. - Return to my office in 1 week. - Continue present medications. My findings are described in the full procedure note, which is enclosed. If I can be of further assistance, please feel free to contact me at Doctor phone number(s): , Fax: [phone], Work: . Sincerely, MD Aramis Roland MD 12/16/2019 7:52:16 AM This report has been signed electronically.
[2019-12-16 08:31] LABS: Absolute Lymphocyte Count 1.74 X10^3/uL (0.83-4.51); Absolute Neutrophil Count 7.2 X10^3/uL (2.0-7.7); Basophil# 0.05 X10^3/uL; Basophil% 0.5 % (0-1); Eosinophil# 0.08 X10^3/uL; Eosinophils% 0.8 % (0-5); Hematocrit 25.5 % (40-54); Hemoglobin 8.4 g/dL (13.0-16.5); Lymphocyte # 1.74 X10^3/ul (4.0); Mean Corp Hgb Conc 32.9 g/dL (32-36); Mean Corpuscular Hgb 30.1 pg (27.0-32.0); Mean Corpuscular Volume 91.4 fL (80-94); Mean Platelet Vol. 11.6 fl (6.2-12.0); Monocyte# 1.03 X10^3/uL; NRBC Flagged by Analyzer 0 % (0-5); Neutrophil # 7.18 X10^3/uL (2.7-7.7); Neutrophil % 69.9 % (47-70); Platelet Count 238 K/mm3 (150-450); RBC Distribution Width CV 13.4 % (11.6-14.6); RBC Distribution Width SD 44.4 fl (35.1-43.9); Red Blood Count 2.79 M/mm3 (4.6-6.2); White Blood Count 10.3 K/mm3 (4.4-11.0)
[2019-12-16] MEDS: Pantoprazole Sodium 40 MG Tablet PO (09:03)
[2019-12-16] MEDS: Carvedilol 25 MG Tablet PO (09:04)
--- NOTE | 2019-12-16 09:08 | DCINST_ITS ---
- Discharge Diagnoses Current Active Problems: Current Active and Chronic Problems (Last Reviewed 12/15/19 @ 16:[address] Aramis Del Rosario MD) Acute blood loss anemia (Acute) CAD (coronary artery disease) (Chronic) HTN (hypertension) (Chronic) HLD (hyperlipidemia) (Chronic) Hyponatremia (Acute) Abnormal CT scan (Acute) You will use the following diet at home:: No restrictions Discharge Activity: Return to Normal Activity Weight Bearing Status: Full weight bearing Allergies/Adverse Reactions: Allergies No Known Allergies Allergy (Unverified 12/15/19 07:17) Medications to take at Discharge atorvastatin 40 mg tablet 40 mg PO DAILY 12/11/19 carvedilol 25 mg tablet 25 mg PO BID 12/11/19 lisinopril 10 mg-hydrochlorothiazide 12.5 mg tablet 1 tab PO DAILY 12/11/19 Hydrocodone/Acetaminophen [[place] 5-325 Tablet] 1 ea PO Q4H PRN PRN 7 Days #30 tab 12/16/19 Pantoprazole Sodium [Protonix] 40 mg PO DAILY #30 tab 12/16/19 Sucralfate [Carafate] 1 gm PO TID@0700,1100,1600 #90 tab 12/16/19 The following prescriptions were given: Sucralfate [Carafate] 1 gm PO TID@0700,1100,1600 #90 tab Transmission Status: Pending to [facility] [address] Hydrocodone/Acetaminophen [[place] 5-325 Tablet] 1 ea PO Q4H PRN PRN 7 Days #30 tab PRN Reason: Pain Score 1-10/10 Transmission Status: Received by MACY [facility] [address] Pantoprazole Sodium [Protonix] 40 mg PO DAILY #30 tab Transmission Status: Pending to [facility] [address] Primary Care Physician: Arsenio Lamas III, MD [Primary Care Provider] - Please follow up with your Primary Care Physician in: in 3 weeks Test Results: Test results from this visit will be discussed in further detail at your follow- up appointment, if applicable. Please Follow Up With: Aramis Del Rosario MD When: in 1 week
[2019-12-16] MEDS: Sucralfate 1 GM Tablet PO (09:40)
--- NOTE | 2019-12-16 11:09 | PCM.DC.SUM ---
Discharge Date and Diagnosis Date of Admission: 12/15/19 Date of Discharge: 12/16/19 - Primary Discharge Diagnosis Acute Problems: Cute blood loss anemia, abdominal pain secondary to duodenal ulcer Pancreatitis ruled out - Secondary Discharge Diagnosis Chronic Problems: Chronic Problems (Last Reviewed 12/15/19 @ 16:[address] Aramis Del Rosario MD) CAD (coronary artery disease) (Chronic) HTN (hypertension) (Chronic) HLD (hyperlipidemia) (Chronic) Hospital Course and Treatment Imaging Results: CT/Abdomen/Pelvis without Cont IMPRESSION: Essentially stable examination with evidence of a findings suggestive of pancreatitis involving the head of the pancreas and thickening of the descending portion of the duodenum with the a diverticulum. Consultations: General surgery-Carin Procedures: EGD Summary of Care Provided: Hospital course: The patient is a 79 year old M with past medical history of above note is notable for CAD with use of aspirin, also on meloxicam, who presented to the emergency room with epigastric abdominal pain. CT was obtained and was concerning for possible pancreatitis, however his lipase was normal. He was somewhat anemic and had been having black stools. We are concerned for an upper GI bleed. The patient was admitted to the medical surgical floor and taken for an EGD the following morning. This revealed a nonbleeding duodenal ulcer. The patient had complete relief of his pain after admission. He was placed on Protonix and Carafate. He will need to remain off aspirin and meloxicam. Pancreatitis was ruled out. Patient was discharged home in stable condition. He will follow-up with general surgery in a week, he should follow-up with his PCP in 1 to 2 weeks. This patient was seen by Bryce Cervantes PA-C under the supervision of Doctor Hayden. [] - Physical Exam Vitals/I&O's: Vital Signs Temp Pulse Resp BP Pulse Ox 98.3 F 64 16 120/67 97 12/16/19 08:31 12/16/19 08:31 12/16/19 08:31 12/16/19 08:31 12/16/19 08:31 Oxygen Delivery Method Room Air Weight: 208 lb 5.001 oz Body Mass Index (BMI) 33.5 Intake and Output for Last 24 Hours 12/14/19 12/15/19 12/16/19 23:59 23:59 23:59 Intake Total 1560 / 1610 2651.25 / 2651.25 Balance 1560 / 1610 2651.25 / 2651.25 General: Alert, Oriented x3, Cooperative HEENT: Atraumatic, PERRLA, EOMI, Normocephalic Neck: Supple, No JVD, Negative Carotid Bruits Lungs: Clear to auscultation, Normal air movement Cardiovascular: Regular rate, No murmurs Abdomen: Bowel Sounds Present, Soft, Non Tender, Obese Extremities: No edema, Capillary Refill Less than 3 Seconds Skin: No rashes, No breakdown Musculoskeletal: No Tenderness to Palpation of Joints or Extremities Neurological: Cranial nerves II-XII grossly intact Psych/Mental Status: Normal Affect, Appropriate, Alert and oriented to time, place, person, mood and affect Laboratory Results 12/15/19 13:35: COVID-19 (DOUG) Negative 12/16/19 05:35: WBC 10.3, RBC 2.79 L, Hgb 8.4 L, Hct 25.5 L, MCV 91.4, MCH 30.1, MCHC 32.9, RDW Std Deviation 44.4 H, RDW Coeff of Chikis 13.4, Plt Count 238, MPV 11.6, Immature Gran % (Auto) 1.800 H, Neut % (Auto) 69.9, Lymph % (Auto) 17.0 L, [place] % (Auto) 10.0, Eos % (Auto) 0.8, Baso % (Auto) 0.5, Absolute Neuts (auto) 7.2, Absolute Lymphs (auto) 1.74, Total Counted 100, Neutrophils % (Manual) 70, Lymphocytes % (Manual) 24, Monocytes % (Manual) 6, Nucleated RBC % 0, Differential Comment MANUAL DIFF, Platelet Estimate ADEQUATE, RBC Morphology NORM C+C 12/16/19 05:35: Sodium 137, Potassium 4.0, Chloride 109 H, Carbon Dioxide 22.0, Anion Gap 6, BUN 33 H, Creatinine 1.35 H, Estim Creat Clear Calc 38.73, Est GFR (MDRD) Af Amer 65, Est GFR (MDRD) Non-Af 54 L, BUN/Creatinine Ratio 24.4 H, Glucose 92, Calcium 7.9 L Discharge Diet: Low fat/ Low Cholesterol, 2000 mg Sodium Diet Discharge Activity: Return to Normal Activity Weight Bearing Status: Full weight bearing Home Medications: Medications to take at Discharge atorvastatin 40 mg tablet 40 mg PO DAILY 12/11/19 carvedilol 25 mg tablet 25 mg PO BID 12/11/19 lisinopril 10 mg-hydrochlorothiazide 12.5 mg tablet 1 tab PO DAILY 12/11/19 Hydrocodone/Acetaminophen [[place] 5-325 Tablet] 1 ea PO Q4H PRN PRN 7 Days #30 tab 12/16/19 Pantoprazole Sodium [Protonix] 40 mg PO DAILY #30 tab 12/16/19 Sucralfate [Carafate] 1 gm PO TID@0700,1100,1600 #90 tab 12/16/19 Following Prescriptions Were Given to Patient: Sucralfate [Carafate] 1 gm PO TID@0700,1100,1600 #90 tab Transmission Status: Received by [facility] [address] [address] Hydrocodone/Acetaminophen [[place] 5-325 Tablet] 1 ea PO Q4H PRN PRN 7 Days #30 tab PRN Reason: Pain Score 1-10/10 Transmission Status: Received by [facility] [address] Pantoprazole Sodium [Protonix] 40 mg PO DAILY #30 tab Transmission Status: Received by [facility] [address] Primary Care Physician: Arsenio Lamas III, MD [Primary Care Provider] - Please follow up with your Primary Care Physician in: in 3 weeks Please Follow Up With: Aramis Del Rosario MD When: in 1 week Disposition: Home Minutes spent on discharge:: 35 Patient Condition:: Stable Medical Necessity - Tobacco Use Smoking Status: Never smoker Tobacco Use: Non-smoker Meaningful Use Info Meaningful Use Diagnoses (Choose all that apply): None applicable
--- NOTE | 2019-12-16 12:09 | PHA.DC.MR ---
Pharmacy Service has performed discharge medication reconciliation for this patient. The patient's discharge medication list was reviewed for discrepancies and discrepancies were resolved. Home Medications atorvastatin 40 mg tablet 40 mg PO DAILY 12/11/19 carvedilol 25 mg tablet 25 mg PO BID 12/11/19 lisinopril 10 mg-hydrochlorothiazide 12.5 mg tablet 1 tab PO DAILY 12/11/19 Hydrocodone/Acetaminophen [[place] 5-325 Tablet] 1 ea PO Q4H PRN PRN 7 Days #30 tab 12/16/19 Pantoprazole Sodium [Protonix] 40 mg PO DAILY #30 tab 12/16/19 Sucralfate [Carafate] 1 gm PO TID@0700,1100,1600 #90 tab 12/16/19
== END 2019-12-16 11:06 | disposition home or self-care (01) ==
LOC: ED 08:11 → MS3 10:31
PROVIDERS: Physician Assistant; Surgery; Admitting Provider Internal Medicine; Emergency Provider Emergency Medicine; PCP Family Medicine; Visit Provider Internal Medicine
PROC: 0DJ08ZZ Inspection of Upper Intestinal Tract, Via Natural or Artificial Opening Endoscopic (ICD-10-PCS; CPT 43235; principal; 2019-12-16 07:25)
DX: K26.4 Chronic or unspecified duodenal ulcer with hemorrhage (principal); D62 Acute posthemorrhagic anemia; I25.10 Atherosclerotic heart disease of native coronary artery without angina pectoris; E78.5 Hyperlipidemia, unspecified; I12.9 Hypertensive chronic kidney disease with stage 1 through stage 4 chronic kidney disease, or unspecified chronic kidney disease; E87.1 Hypo-osmolality and hyponatremia; E66.9 Obesity, unspecified; M19.90 Unspecified osteoarthritis, unspecified site; L40.9 Psoriasis, unspecified; Z79.899 Other long term (current) drug therapy; Z79.82 Long term (current) use of aspirin; Z68.33 Body mass index [BMI] 33.0-33.9, adult; N18.3 Chronic kidney disease, stage 3 (moderate)
CPT/HCPCS: 43239; 74176; 80048; 80053; 83690; 85025; 85610; 85730; 86850; 86900; 86901; 87635; 88305; 88342; 93005; 94799; 96361; 96374; 97802; 97803; 99218; 99285; J7030; A4216; G0378; J2405; J3490; U0003

== ENCOUNTER 2019-12-18 06:27 | Emergency (ER) | payer MEDICARE, SELFPAY ==
[2019-12-16 06:51] VITALS: BMI 33.5
[2019-12-18] VITALS (9 sets, daily range): BP systolic 69–91; BP diastolic 45–57; PULSE 70–92; RESP 15–19; TEMP 36.1–36.6; O2SAT 98–100; BMI 36.1
--- NOTE | 2019-12-18 06:33 | EKG12_ITS ---
Test Reason : GI BLEED Blood Pressure : / mmHG Vent. Rate : 084 BPM Atrial Rate : 084 BPM P-R Int : 192 ms QRS Dur : 092 ms QT Int : 368 ms P-R-T Axes : 013 -10 036 degrees QTc Int : 434 ms Normal sinus rhythm Normal ECG Confirmed by FRITZ COLON, NASEEM ([id number]), canoe inspector JORDANA CARREON ([id number]) on 12/19/2019 11:31:22 A M Referred By: LUDWIN Confirmed By:KIERAN HU MD
--- NOTE | 2019-12-18 06:34 | RAD_ITS ---
STUDY: X-RAY CHEST REASON FOR EXAM: Male, 79 years old. blood in stool, weakness, low blood pressure -- pt recently scoped and was found to have a bleeding ulcer TECHNIQUE: Portable chest COMPARISON: None. FINDINGS: The lungs are clear and expanded. There is no demonstrated pleural abnormality. Normal size heart. Normal mediastinum and lauri. Normal visualized pulmonary arteries. Normal visualized aortic arch and descending thoracic aorta. Normal visualized thoracic spine. Normal visualized ribs, clavicles, and shoulders. There is no demonstrated abnormality of the visualized soft tissue structures of the upper abdomen. RAD/Chest 1 View (Portable) IMPRESSION: Normal x-ray examination of the chest. Electronically Signed: Sreedhar Bose, at 7:20 EDT Tel , Service support ,
[2019-12-18] MEDS: 0.9% Normal Saline 1,000 ML 999 ML IV (06:36)
--- NOTE | 2019-12-18 06:47 | ED.DCSUM_ITS ---
History of Present Illness Informant: Patient, Family Onset: Today Narrative: Patient presents by EMS from home reported increasing weakness and noticing blood in his stools. States slightly red this time. Denies abdominal pain. Denies chest pains. Reports just discharged 2 days ago from the hospital found to have a gastric ulcer on Protonix. Endoscopy performed by Dr. Del Rosario. History of coronary disease with 1 stent. From records, his aspirin and meloxicam was held after being discharged. He had additional Carafate prescription. Denies cough or urinary symptoms. EMS blood pressure systolic 80s on their arrival. He states he was not transfused blood while in the hospital. Prior similar symptoms: Yes <Adilson Fraser - Last Filed: 12/18/19 07:11> <Kalie Fermin - Last Filed: 12/18/19 08:49> Chief Complaint: GI Bleed Past Medical History Past Medical History: - - Hypertension, hyperlipidemia, coronary disease, gastric ulcer, chronic kidney disease Surgical History: herniorrhaphy - Adams 1994., tonsillectomy Smoking Status: Never smoker - Family History Maternal Family History: Reports: - - denies CAD, cancer, stroke, DM Paternal Family History: Reports: Heart Disease <Adilson Fraser - Last Filed: 12/18/19 07:11> <Kalie Fermin - Last Filed: 12/18/19 08:49> - Allergies and Home Meds Allergies/Adverse Reactions: Allergies No Known Allergies Allergy (Unverified 12/18/19 06:33) Primary Care Physician: Arsenio Lamas III, MD [Primary Care Provider] - Review of Systems General: Denies: Chills, Fever, Sweats Eyes: Denies: Visual changes - bilaterally, Diplopia ENT: Denies: Rhinorrhea, Sore throat Cardiovascular: Denies: Chest pain, Palpitations Respiratory: Denies: Dyspnea, Cough, Dyspnea on exertion Gastrointestinal: Reports: Hematochezia. Denies: Abdominal pain, Nausea, Vomiting, Diarrhea, Melena Genitourinary: Denies: Dysuria, Hematuria, Frequency Musculoskeletal: Denies: Back pain, Extremity Pain Skin: Denies: Rash, Wounds Neurological: Reports: Weakness. Denies: Headache, Numbness <Adilson Fraser - Last Filed: 12/18/19 07:11> Physical Exam Vital Signs/Narrative: Vital Signs Temp Pulse Resp BP Pulse Ox 12/18/19 06:34 91 19 H 69/45 L 98 12/18/19 06:28 96.9 F L 92 16 76/45 L 98 Inital Vital Signs reviewed: Yes General: Well nourished, Well developed, No Acute Distress Head: Normocephalic, Atraumatic Eyes: Perrl, EOMI, Pale conjunctiva ENT: Moist mucous membranes, No rhinorrhea Neck: Supple, Nontender Cardiovascular: Regular rate, Regular rhythm, No murmurs Respiratory: No distress, CTA bilaterally, Chest nontender Abdomen: Soft, Nontender, Nondistended, Normal bowel sounds Back: Nontender, Normal Inspection Extremities: Nontender, No edema Skin: No rash, Pallor Neurological: Alert, Oriented x3, Cranial nerves II-XII grossly intact, Normal Strength, Normal Sensation Psychological: Normal affect, Normal Mood <Adilson Fraser - Last Filed: 12/18/19 07:11> Vital Signs/Narrative: Vital Signs Temp Pulse Resp BP Pulse Ox 12/18/19 08:03 78 18 82/52 L 100 12/18/19 07:28 81 18 91/49 L 100 12/18/19 06:34 91 19 H 69/45 L 98 12/18/19 06:28 96.9 F L 92 16 76/45 L 98 <Kalie Fermin - Last Filed: 12/18/19 08:49> Diagnostic/Tx/Re-eval - EKG Initial EKG Interpretation: Sinus Rhythm - Sinus rate of 84, no ST or T wave changes. - Medical Decision Making Patient presented with low blood pressure, IV fluids ordered. He has no abdominal pain. No gastric ulcer. Noted he had a hemoglobin on admission of 10.3, discharged 2 days ago with hemoglobin 8.4. Clinically pale with hypotension concerns for active blood loss. Type and cross for 2 units of blood. Consent will be obtained for blood transfusion. Labs obtained for evaluation. He is currently not on aspirin or meloxicam. Patient will need to be admitted due to his hypotension. Patient will be signed out to [facility]. <Adilson Fraser - Last Filed: 12/18/19 07:11> - Medical Decision Making The patient has remained hemodynamically stable here in the department his blood pressure is now about 95 after IV fluids blood transfusion started, his creatinine returned about 2.5 potassium 6.1 he was given IV insulin glucose aerosols his EKG shows a sinus rhythm no acute injury no signs of hyperkalemia he is resting comfortably in the bed awake and alert discussed transfer options with him and the family, We did speak with the medical team who spoke with the surgical team who had managed the patient during recent admission to this facility who have reported they feel the patient needs to be transferred to a tertiary care center for ongoing care spoke with multiple tertiary care centers in the [facility] ICU team has accepted him in transfer for further management of all the above, patient and family agree to this transfer transfer to [facility] Final impression, GI bleed, hypotension, chronic renal insufficiency, hyperkalemia, history of ulcer, acute blood loss anemia Critical care time 30 to 45 minutes <Kalie Fermin - Last Filed: 12/18/19 08:49> ED Disposition <Adilson Fraser - Last Filed: 12/18/19 07:11> <Kalie Fermin - Last Filed: 12/18/19 08:49> - Plan for ED Patient: Diagnosis: GI bleed, Anemia, Hypotension Referrals: Arsenio Lamas III, MD [Primary Care Provider] -
[2019-12-18 07:05] LABS: Absolute Lymphocyte Count 2.13 X10^3/uL (0.83-4.51); Absolute Neutrophil Count 26.6 X10^3/uL (2.0-7.7); Basophil# 0.11 X10^3/uL; Basophil% 0.4 % (0-1); Eosinophil# 0.03 X10^3/uL; Eosinophils% 0.1 % (0-5); Hematocrit 18.8 % (40-54); Lymphocyte # 2.13 X10^3/ul (4.0); Lymphocyte % 6.9 % (19-41); Mean Corp Hgb Conc 30.9 g/dL (32-36); Mean Corpuscular Hgb 29.4 pg (27.0-32.0); Mean Corpuscular Volume 95.4 fL (80-94); Mean Platelet Vol. 11.2 fl (6.2-12.0); Monocyte# 1.19 X10^3/uL; Monocyte% 3.8 % (0-10); NRBC Flagged by Analyzer 0 % (0-5); Neutrophil # 26.57 X10^3/uL (2.7-7.7); Neutrophil % 85.4 % (47-70); POSITIVE COUNT YES; POSITIVE DIFFERENTIAL YES; Platelet Count 417 K/mm3 (150-450); RBC Distribution Width SD 48.2 fl (35.1-43.9); Red Blood Count 1.97 M/mm3 (4.6-6.2)
[2019-12-18 07:11] LABS: Hemoglobin 5.8 g/dL (13.0-16.5); White Blood Count 31.1 K/mm3 (4.4-11.0)
[2019-12-18 07:12] LABS: Differential Indicated SCAN CRITERIA MET
[2019-12-18 07:19] LABS: Anion Gap 14 (5-15); BUN 64 mg/dL (7-18); BUN/Creat Ratio 25.5 RATIO (10-20); Calcium,Total 7.7 mg/dL (8.5-10.1); Chloride 106 mmol/L (98-107); Creatinine, Serum 2.51 mg/dL (0.70-1.30); EST Glomerular Filtration Rate 26 mL/min (>60); Est Glom Filt Rate - Afr Amer 32 mL/min (>60); Estimated Creatinine Clearance 20.83 ml/min; Glucose 182 mg/dL (74-106); Potassium 6.1 mmol/L (3.5-5.1); Sodium Level 135 mmol/L (136-145)
--- NOTE | 2019-12-18 07:19 | ED.RN ---
lab called critical value of potassium 6.1. dr montalvo
[2019-12-18 08:11] LABS: International Normalized Ratio 1.4; Prothrombin Time (Protime)PT. 16.7 SECONDS (11.7-14.9)
[2019-12-18] MEDS: Dextrose 50%-Water 25 GM/50 ML DISP.SYRIN IV (08:46)
[2019-12-18] MEDS: Insulin Lispro 5 UNIT in Syringe 0 ML 3 UNIT IV (08:46)
[2019-12-18] MEDS: Albuterol 2.5 MG/3 ML VIAL.NEB. INHALATION (08:46)
[2019-12-19 13:51] LABS: Pathologist Review Reviewed
== END 2019-12-18 10:01 | disposition short-term general hospital (02) ==
PROVIDERS: Emergency Provider Emergency Medicine; PCP Family Medicine
DX: K92.2 Gastrointestinal hemorrhage, unspecified (principal); D64.9 Anemia, unspecified; I95.9 Hypotension, unspecified; E78.5 Hyperlipidemia, unspecified; I25.10 Atherosclerotic heart disease of native coronary artery without angina pectoris; I12.9 Hypertensive chronic kidney disease with stage 1 through stage 4 chronic kidney disease, or unspecified chronic kidney disease; N18.9 Chronic kidney disease, unspecified; Z87.11 Personal history of peptic ulcer disease; Z79.899 Other long term (current) drug therapy; Z95.5 Presence of coronary angioplasty implant and graft
CPT/HCPCS: 36430; 71045; 80048; 85025; 85610; 86850; 86900; 86901; 86920; 86922; 93005; 94640; 96365; 96366; 96375; 99285; J7030; P9016; A4216

== ENCOUNTER → 2020-01-15 12:24 | Outpatient (CLI) | payer MEDICARE, SELFPAY ==
[2019-12-18 06:28] VITALS: BMI 36.1
[2020-01-15 15:26] LABS: Hematocrit 28.4 % (40-54); Hemoglobin 8.6 g/dL (13.0-16.5); Mean Corp Hgb Conc 30.3 g/dL (32-36); Mean Corpuscular Hgb 28.2 pg (27.0-32.0); Mean Corpuscular Volume 93.1 fL (80-94); Mean Platelet Vol. 12.4 fl (6.2-12.0); Platelet Count 227 K/mm3 (150-450); RBC Distribution Width CV 15.8 % (11.6-14.6); RBC Distribution Width SD 54.1 fl (35.1-43.9); Red Blood Count 3.05 M/mm3 (4.6-6.2); White Blood Count 6.6 K/mm3 (4.4-11.0)
[2020-01-15 15:46] LABS: ALB/GLOB Ratio 0.8 RATIO (0.9-2.4); AST(SGOT) 32 U/L (15-37); Alanine Aminotransfer ALT/SGPT 25 U/L (16-61); Albumin, Serum 2.8 g/dL (3.2-5.0); Alkaline Phosphatase 158 U/L (45-117); Anion Gap 8 (5-15); BUN 17 mg/dL (7-18); BUN/Creat Ratio 11.6 RATIO (10-20); Calcium,Total 8.6 mg/dL (8.5-10.1); Chloride 106 mmol/L (98-107); Creatinine, Serum 1.46 mg/dL (0.70-1.30); EST Glomerular Filtration Rate 49 mL/min (>60); Est Glom Filt Rate - Afr Amer 60 mL/min (>60); Globulin 3.6 g/dL (2.2-4.2); Glucose 108 mg/dL (74-106); Potassium 4.3 mmol/L (3.5-5.1); Protein, Total 6.4 g/dL (6.4-8.2); Sodium Level 139 mmol/L (136-145)
== END ==
PROVIDERS: PCP Family Medicine; Referring Provider Family Medicine; Visit Provider Family Medicine
DX: I25.10 Atherosclerotic heart disease of native coronary artery without angina pectoris (principal)
CPT/HCPCS: 36415; 80053; 85027

== ENCOUNTER → 2020-04-19 10:39 | Outpatient (CLI) | payer MEDICARE, SELFPAY ==
[2019-12-18 06:28] VITALS: BMI 36.1
[2020-04-19 12:20] LABS: Absolute Lymphocyte Count 0.58 X10^3/uL (0.83-4.51); Absolute Neutrophil Count 3.1 X10^3/uL (2.0-7.7); Basophil# 0.03 X10^3/uL; Basophil% 0.6 % (0-1); Eosinophil# 0.17 X10^3/uL; Eosinophils% 3.6 % (0-5); Lymphocyte # 0.58 X10^3/ul (4.0); Lymphocyte % 12.4 % (19-41); Mean Corp Hgb Conc 32.4 g/dL (32-36); Mean Corpuscular Hgb 28.1 pg (27.0-32.0); Mean Corpuscular Volume 86.7 fL (80-94); Mean Platelet Vol. 12.5 fl (6.2-12.0); Monocyte# 0.75 X10^3/uL; Monocyte% 16.1 % (0-10); NRBC Flagged by Analyzer 0 % (0-5); Neutrophil # 3.12 X10^3/uL (2.7-7.7); Neutrophil % 66.9 % (47-70); POSITIVE DIFFERENTIAL YES; Platelet Count 129 K/mm3 (150-450); RBC Distribution Width CV 15.6 % (11.6-14.6); RBC Distribution Width SD 49.6 fl (35.1-43.9); Red Blood Count 3.92 M/mm3 (4.6-6.2); White Blood Count 4.7 K/mm3 (4.4-11.0)
[2020-04-19 12:27] LABS: Differential Indicated SCAN CRITERIA MET
[2020-04-19 12:29] LABS: Ferritin 18 ng/mL (26-388); Iron Binding Capacity,Total 363 ug/dL (250-450)
== END ==
PROVIDERS: PCP Family Medicine; Visit Provider Family Medicine
DX: E61.1 Iron deficiency (principal)
CPT/HCPCS: 36415; 82728; 83550; 85025

== ENCOUNTER → 2020-07-16 08:34 | Outpatient (CLI) | payer MEDICARE, SELFPAY ==
[2019-12-18 06:28] VITALS: BMI 36.1
[2020-07-16 10:11] LABS: Absolute Neutrophil Count 3.3 X10^3/uL (2.0-7.7); Basophil# 0.07 X10^3/uL; Basophil% 1.3 % (0-1); Eosinophil# 0.49 X10^3/uL; Eosinophils% 9.1 % (0-5); Hematocrit 38.5 % (40-54); Hemoglobin 12.8 g/dL (13.0-16.5); Lymphocyte % 13.1 % (19-41); Mean Corp Hgb Conc 33.2 g/dL (32-36); Mean Corpuscular Volume 90.2 fL (80-94); Mean Platelet Vol. 11.8 fl (6.2-12.0); Monocyte# 0.83 X10^3/uL; Monocyte% 15.5 % (0-10); NRBC Flagged by Analyzer 0 % (0-5); Neutrophil # 3.26 X10^3/uL (2.7-7.7); Neutrophil % 60.8 % (47-70); Platelet Count 155 K/mm3 (150-450); RBC Distribution Width SD 49.7 fl (35.1-43.9); Red Blood Count 4.27 M/mm3 (4.6-6.2); White Blood Count 5.4 K/mm3 (4.4-11.0)
[2020-07-16 10:43] LABS: AST(SGOT) 33 U/L (15-37); Alanine Aminotransfer ALT/SGPT 39 U/L (16-61); Albumin, Serum 3.2 g/dL (3.2-5.0); Alkaline Phosphatase 124 U/L (45-117); Anion Gap 7 (5-15); BUN 23 mg/dL (7-18); BUN/Creat Ratio 16.9 RATIO (10-20); Calcium,Total 9.3 mg/dL (8.5-10.1); Chloride 107 mmol/L (98-107); Cholesterol 133 mg/dL (200); Creatinine, Serum 1.36 mg/dL (0.70-1.30); EST Glomerular Filtration Rate 53 mL/min (>60); Est Glom Filt Rate - Afr Amer 65 mL/min (>60); Ferritin 47 ng/mL (26-388); Globulin 3.3 g/dL (2.2-4.2); Glucose 108 mg/dL (74-106); High Density Lipoprotein 36 mg/dL; Potassium 4.4 mmol/L (3.5-5.1); Protein, Total 6.5 g/dL (6.4-8.2); Sodium Level 140 mmol/L (136-145); Triglycerides 120 mg/dL; Very Low Density Lipoprotein 24 mg/dL (5-40)
== END ==
PROVIDERS: PCP Family Medicine; Referring Provider Family Medicine; Visit Provider Family Medicine
DX: E61.1 Iron deficiency (principal); I25.10 Atherosclerotic heart disease of native coronary artery without angina pectoris
CPT/HCPCS: 36415; 80053; 80061; 82728; 85025

== ENCOUNTER → 2020-07-20 10:14 | Outpatient (CLI) | payer MEDICARE, SELFPAY ==
[2019-12-18 06:28] VITALS: BMI 36.1
--- NOTE | 2020-07-19 | LES_PTH ---
PATIENT: HEATHER HERNANDEZ [facility] U#:[id number] AGE/SX: 84/M ROOM: RE07/20/[address]: Dr. 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 Negative for melanocytic lesion. See comment. AGUS:anton 07/21/2020 COMMENT The specimen consists of only a superficial portion of the lesion. Re-biopsy or excision of the lesion is suggested for definite diagnosis. Case has been reviewed in consultation with Dr. Martinez who concurs with the above diagnosis. IDC:AM MICROSCOPIC DESCRIPTION Slides are reviewed. GROSS DESCRIPTION Received is one container labeled with the patient's name and not further designated. The specimen consists of a punch biopsy of albarran-white skin measuring 0.2 cm in diameter and 0.1 cm in length. The entire specimen is submitted in one cassette. / SJ:rg 07/20/20 TC:0 CPT: 44749
== END ==
PROVIDERS: PCP Family Medicine; Referring Provider Family Medicine; Visit Provider Family Medicine
DX: L81.9 Disorder of pigmentation, unspecified (principal)
CPT/HCPCS: 88305

== ENCOUNTER → 2020-10-26 08:46 | Outpatient (CLI) | payer MEDICARE, SELFPAY ==
[2019-12-18 06:28] VITALS: BMI 36.1
[2020-10-26 10:04] LABS: Absolute Lymphocyte Count 0.58 X10^3/uL (0.83-4.51); Absolute Neutrophil Count 3.3 X10^3/uL (2.0-7.7); Basophil# 0.03 X10^3/uL; Basophil% 0.6 % (0-1); Eosinophil# 0.22 X10^3/uL; Eosinophils% 4.6 % (0-5); Hematocrit 37.8 % (40-54); Hemoglobin 12.4 g/dL (13.0-16.5); Lymphocyte # 0.58 X10^3/ul (0.83-4.51); Lymphocyte % 12.1 % (19-41); Mean Corp Hgb Conc 32.8 g/dL (32-36); Mean Corpuscular Volume 91.3 fL (80-94); Mean Platelet Vol. 12.1 fl (6.2-12.0); Monocyte# 0.64 X10^3/uL; Monocyte% 13.4 % (0-10); NRBC Flagged by Analyzer 0 % (0-5); Neutrophil # 3.31 X10^3/uL (2.7-7.7); Neutrophil % 69.1 % (47-70); POSITIVE DIFFERENTIAL YES; Platelet Count 150 K/mm3 (150-450); RBC Distribution Width SD 47.6 fl (35.1-43.9); Red Blood Count 4.14 M/mm3 (4.6-6.2); White Blood Count 4.8 K/mm3 (4.4-11.0)
[2020-10-26 10:34] LABS: Differential Indicated SCAN CRITERIA MET
[2020-10-26 10:47] LABS: Anion Gap 7 (5-15); BUN 25 mg/dL (7-18); BUN/Creat Ratio 19.7 RATIO (10-20); Calcium,Total 9.2 mg/dL (8.5-10.1); Chloride 105 mmol/L (98-107); Creatinine, Serum 1.27 mg/dL (0.70-1.30); EST Glomerular Filtration Rate 58 mL/min (>60); Est Glom Filt Rate - Afr Amer 70 mL/min (>60); Ferritin 68 ng/mL (26-388); Glucose 124 mg/dL (74-106); Potassium 4.2 mmol/L (3.5-5.1); Sodium Level 138 mmol/L (136-145)
[2020-10-26 11:25] LABS: Differential Comment SCANNED
== END ==
PROVIDERS: PCP Family Medicine; Visit Provider Family Medicine
DX: K21.9 Gastro-esophageal reflux disease without esophagitis (principal)
CPT/HCPCS: 36415; 80048; 82728; 85025

== ENCOUNTER → 2020-11-18 09:09 | Outpatient (CLI) | payer MEDICARE, SELFPAY ==
[2019-12-18 06:28] VITALS: BMI 36.1
--- NOTE | 2020-11-18 09:13 | RAD_ITS ---
STUDY: X-RAY - RIGHT KNEE REASON FOR EXAM: Male, 80 years old. PAIN TECHNIQUE: 3 view(s) of the knee. COMPARISON: None. FINDINGS: Normal visualized distal femur. Normal visualized proximal tibia and fibula. Normal proximal tibiofibular articulation. There is no demonstrated fracture. There is moderate degenerative arthrosis of the medial femorotibial compartment with moderate joint space narrowing. There is mild degenerative arthrosis of the lateral femorotibial compartment. There is mild degenerative arthrosis of the patellofemoral articulation. There is a soft tissue prominence in the suprapatellar region suggesting a small volume joint effusion. There are atherosclerotic calcifications. RAD/Knee 3 Views IMPRESSION: Degenerative arthrosis. Small joint effusion Electronically Signed: Shantanu Oh MD at 16:35 EDT , Service support ,
--- NOTE | 2020-11-18 09:13 | RAD_ITS ---
STUDY: X-RAY - LEFT KNEE REASON FOR EXAM: Male, 80 years old. PAIN TECHNIQUE: 3 view(s) of the knee. COMPARISON: None. FINDINGS: Normal visualized distal femur. Normal visualized proximal tibia and fibula. Normal proximal tibiofibular articulation. There is no demonstrated fracture. There is severe degenerative arthrosis of the medial femorotibial compartment with severe joint space narrowing. There is mild degenerative arthrosis of the lateral femorotibial compartment. There is mild degenerative arthrosis of the patellofemoral articulation. There is a moderate volume joint effusion. The soft tissue structures are unremarkable. RAD/Knee 3 Views IMPRESSION: Degenerative arthrosis. Moderate size joint effusion Electronically Signed: Shantanu Oh MD at 16:36 EDT , Service support ,
== END ==
PROVIDERS: PCP Family Medicine; Referring Provider Family Medicine; Visit Provider Family Medicine
DX: M25.561 Pain in right knee (principal); M25.562 Pain in left knee
CPT/HCPCS: 73562

== ENCOUNTER → 2021-11-21 | Outpatient (CLI) | payer MEDICARE, SELFPAY ==
[2021-11-21 12:13] LABS: Absolute Lymphocyte Count 0.84 X10^3/uL (0.83-4.51); Absolute Neutrophil Count 3.6 X10^3/uL (2.0-7.7); Basophil# 0.04 X10^3/uL; Basophil% 0.7 % (0-1); Eosinophil# 0.21 X10^3/uL; Eosinophils% 3.9 % (0-5); Hematocrit 34.9 % (40-54); Hemoglobin 11.4 g/dL (13.0-16.5); Lymphocyte # 0.84 X10^3/ul (0.83-4.51); Lymphocyte % 15.5 % (19-41); Mean Corp Hgb Conc 32.7 g/dL (32-36); Mean Corpuscular Hgb 30.3 pg (27.0-32.0); Mean Corpuscular Volume 92.8 fL (80-94); Mean Platelet Vol. 12.6 fl (6.2-12.0); Monocyte# 0.76 X10^3/uL; NRBC Flagged by Analyzer 0 % (0-5); Neutrophil # 3.55 X10^3/uL (2.7-7.7); Neutrophil % 65.5 % (47-70); Platelet Count 127 K/mm3 (150-450); RBC Distribution Width CV 14.5 % (11.6-14.6); RBC Distribution Width SD 49.1 fl (35.1-43.9); Red Blood Count 3.76 M/mm3 (4.6-6.2); White Blood Count 5.4 K/mm3 (4.4-11.0)
[2021-11-21 12:34] LABS: AST(SGOT) 26 U/L (15-37); Alanine Aminotransfer ALT/SGPT 33 U/L (16-61); Alkaline Phosphatase 98 U/L (45-117); Anion Gap 8 (5-15); BUN 28 mg/dL (7-18); BUN/Creat Ratio 17.5 RATIO (10-20); Calcium,Total 9.3 mg/dL (8.5-10.1); Chloride 107 mmol/L (98-107); Cholesterol 117 mg/dL (200); EST Glomerular Filtration Rate 44 mL/min (>60); Est Glom Filt Rate - Afr Amer 53 mL/min (>60); Ferritin 30 ng/mL (26-388); Glucose 93 mg/dL (74-106); High Density Lipoprotein 41 mg/dL; Potassium 4.5 mmol/L (3.5-5.1); Sodium Level 140 mmol/L (136-145); Triglycerides 99 mg/dL; Very Low Density Lipoprotein 20 mg/dL (5-40)
[2021-11-22 20:05] LABS: PSA, Total 2.3 ng/mL (0.0-4.0)
== END | disposition home or self-care (01) ==
LOC: MFPLAB 10:38
PROVIDERS: PCP Family Medicine; Visit Provider Family Medicine
DX: E61.1 Iron deficiency (principal); I25.10 Atherosclerotic heart disease of native coronary artery without angina pectoris; I10 Essential (primary) hypertension; R94.8 Abnormal results of function studies of other organs and systems; Z12.5 Encounter for screening for malignant neoplasm of prostate
CPT/HCPCS: 36415; 80053; 80061; 82728; 84153; 85025

== ENCOUNTER → 2021-11-28 | Outpatient (CLI) | payer MEDICARE, SELFPAY ==
[2021-11-28 12:28] LABS: Vitamin B12 326 pg/mL (211-911)
== END | disposition home or self-care (01) ==
LOC: MFPLAB 09:36
PROVIDERS: PCP Family Medicine; Visit Provider Family Medicine
DX: E61.1 Iron deficiency (principal)
CPT/HCPCS: 36415; 82607; 82746

== ENCOUNTER → 2022-05-24 | Outpatient (CLI) | payer MEDICARE, SELFPAY ==
[2022-05-24 12:35] LABS: Absolute Lymphocyte Count 0.65 X10^3/uL (0.83-4.51); Absolute Neutrophil Count 2.6 X10^3/uL (2.0-7.7); Basophil# 0.03 X10^3/uL; Basophil% 0.8 % (0-1); Eosinophil# 0.13 X10^3/uL; Eosinophils% 3.3 % (0-5); Hematocrit 29.6 % (40-54); Hemoglobin 9.3 g/dL (13.0-16.5); Lymphocyte # 0.65 X10^3/ul (0.83-4.51); Lymphocyte % 16.3 % (19-41); Mean Corp Hgb Conc 31.4 g/dL (32-36); Mean Corpuscular Hgb 30.4 pg (27.0-32.0); Mean Corpuscular Volume 96.7 fL (80-94); Mean Platelet Vol. 13.4 fl (6.2-12.0); Monocyte# 0.55 X10^3/uL; Monocyte% 13.8 % (0-10); NRBC Flagged by Analyzer 0 % (0-5); Neutrophil # 2.63 X10^3/uL (2.7-7.7); Neutrophil % 65.5 % (47-70); POSITIVE COUNT YES; Platelet Count 88 K/mm3 (150-450); RBC Distribution Width CV 15.3 % (11.6-14.6); RBC Distribution Width SD 54.6 fl (35.1-43.9); Red Blood Count 3.06 M/mm3 (4.6-6.2)
[2022-05-24 12:38] LABS: Differential Indicated SCAN CRITERIA MET
[2022-05-24 12:39] LABS: Vitamin B12 1549 pg/mL (211-911)
[2022-05-24 12:47] LABS: ALB/GLOB Ratio 0.9 RATIO (0.9-2.4); AST(SGOT) 30 U/L (15-37); Alanine Aminotransfer ALT/SGPT 25 U/L (16-61); Albumin, Serum 2.6 g/dL (3.2-5.0); Alkaline Phosphatase 99 U/L (45-117); Anion Gap 7 (5-15); BUN 25 mg/dL (7-18); BUN/Creat Ratio 17.9 RATIO (10-20); Calcium,Total 8.2 mg/dL (8.5-10.1); Chloride 111 mmol/L (98-107); EST Glomerular Filtration Rate 51 mL/min (>60); Est Glom Filt Rate - Afr Amer 62 mL/min (>60); Globulin 2.9 g/dL (2.2-4.2); Glucose 113 mg/dL (74-106); Potassium 4.3 mmol/L (3.5-5.1); Protein, Total 5.5 g/dL (6.4-8.2); Sodium Level 142 mmol/L (136-145); Thyroid Stim Hormone (TSH) 0.14 uIU/mL (0.358-3.74)
[2022-05-24 13:10] LABS: Differential Comment SCANNED; Platelet Estimate MOD DEC (ADEQ); Platelet Morphology LARGE
[2022-05-24 13:11] LABS: Hemoglobin A1c 5.2 % (3.8-5.6)
== END | disposition home or self-care (01) ==
PROVIDERS: PCP Family Medicine; Referring Provider Family Medicine; Visit Provider Family Medicine
DX: D64.9 Anemia, unspecified (principal); E53.8 Deficiency of other specified B group vitamins; R22.43 Localized swelling, mass and lump, lower limb, bilateral; R73.01 Impaired fasting glucose
CPT/HCPCS: 36415; 80053; 82607; 83036; 84443; 85025

== ENCOUNTER 2022-06-01 14:08 | Outpatient (CLI) | payer MEDICARE, SELFPAY ==
[2022-06-01 18:33] LABS: Free T3 2.5 pg/mL (2.18-3.98); T4 Free Direct 1.34 ng/dL (0.76-1.46)
[2022-06-05 23:24] LABS: Anti-Thyroglobulin AB < 1.0 IU/mL (0.0-0.9); Thyroid Peroxidase AB < 9 IU/mL (0-34)
== END 2022-06-01 23:59 | disposition home or self-care (01) ==
LOC: MFPLAB 14:09
PROVIDERS: PCP Family Medicine; Referring Provider Family Medicine; Visit Provider Family Medicine
DX: R79.89 Other specified abnormal findings of blood chemistry (principal)
CPT/HCPCS: 36415; 84432; 84439; 84481; 86376; 86800

== ENCOUNTER → 2022-07-11 | Outpatient (CLI) | payer MEDICARE, SELFPAY ==
--- NOTE | 2022-07-11 12:21 | EKG12_ITS ---
Test Reason : PREOP Blood Pressure : / mmHG Vent. Rate : 070 BPM Atrial Rate : 070 BPM P-R Int : 208 ms QRS Dur : 102 ms QT Int : 442 ms P-R-T Axes : 025 -20 005 degrees QTc Int : 477 ms Normal sinus rhythm Normal ECG Confirmed by KRISTINA COLON, JERONIMO ([id number]), editor magazine JORDANA CARREON ([id number]) on 07/12/2022 8:15:41 AM Referred By: Todd Su Confirmed By:JERONIMO ACEVEDO MD
[2022-07-11 14:36] LABS: Free T3 2.6 pg/mL (2.18-3.98); Thyroid Stim Hormone (TSH) 0.04 uIU/mL (0.358-3.74)
== END | disposition home or self-care (01) ==
LOC: PSN 12:18
PROVIDERS: PCP Family Medicine; Referring Provider Surgery; Visit Provider Surgery
DX: Z01.810 Encounter for preprocedural cardiovascular examination (principal); E05.90 Thyrotoxicosis, unspecified without thyrotoxic crisis or storm
CPT/HCPCS: 36415; 84436; 84443; 84481; 93005

== ENCOUNTER 2022-08-15 08:41 | Day surgery (SDC) | payer MEDICARE, SELFPAY ==
[2022-08-15] VITALS (7 sets, daily range): BP systolic 96–137; BP diastolic 52–63; PULSE 63–67; RESP 16–18; TEMP 36.5–36.9; O2SAT 96–97; BMI 35.3
[2022-08-15] MEDS: Lactated Ringers 1,000 ML 15 ML IV (09:10)
--- NOTE | 2022-08-15 09:33 | HP.PCM_ITS ---
History and Physical Date of Admission: 08/15/22 Intake Vital Signs ? 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 Required: No Is patient in pain?: No Allergies No Known Allergies Allergy (Verified 06/16/22 13:55) Medications atorvastatin 40 mg tablet 40 mg PO DAILY CHOLESTEROL 12/11/19 [History Confirmed 06/16/22] carvedilol 25 mg tablet 25 mg PO BID HEART 12/11/19 [History Confirmed 06/16/22] lisinopril 10 mg-hydrochlorothiazide 12.5 mg tablet 1 tab PO DAILY BLOOD PRESSURE 12/11/19 [History Confirmed 06/16/22] pantoprazole 40 mg tablet,delayed release 40 mg PO DAILY #30 tabs 12/16/19 [Rx Confirmed 06/16/22] aspirin 81 mg tablet,delayed release 81 mg PO DAILY 06/08/22 [History Confirmed 06/16/22] PFSH Medical History? Abdominal pain Arthritis ASHD (arteriosclerotic heart disease) Chronic kidney disease Hyperlipidemia Hypertension Obesity Psoriasis Surgical History? History of heart artery stent History of hernia surgery Family History? Father Heart disease ArthritisBrother?? Diabetes Arthritis Kidney disease ObesityMother Arthritis Social History? Smoking Status:? Never smoker alcohol intake:? never substance use type:? does not use HPI HPI HPI: Patient is an 81-year-old male here with positive fecal occult blood test.? The patient was also found to be slightly anemic.? Patient has a history of duodenal ulcer.? Patient is on chronic PPI.? He denies any abdominal pain or gross blood in the stool.? He denies any nausea or vomiting. ROS General General: No weight change, appetite, fatigue, colon cancer, breast cancer or weakness HEENT HEENT: No difficulty swallowing, eye injury, eye surgery, swollen glands or hoarseness Endo Endocrine: No thyroid disease, diabetes mellitus, thyroid cancer, Hair loss, heat intolerance or cold intolerance Skin Skin: No rash or changing moles Musc Musculoskeletal: Yes arthritis; No back problems, rheumatoid arthritis, gout or joint pain Cardio Cardiovascular: Yes heart disease, high blood pressure, heart attack and heart stent; No murmur, pacemaker, atrial fibrillation, palpitations, shortness of breat with exertion or chest pain Psych Psychiatric: No depression, anxiety or hearing voices Resp Respiratory: No shortness of breath, No sleep apnea, No cough, No COPD, No asthma, No emphysema and No wheezing Gastro Gastrointestinal: No abdominal pain, No nausea or vomiting, No diarrhea, No constipation, Yes blood in stool, No acid reflux, No hemorrhoids, Yes ulcers, No gallbladder problem and No black,tarry stools [place] Hematologic: No blood thinners, No blood disorders, No bleeding, No anemia and No blood clots Neuro Neurologic: No system reviewed and no additional complaints, except as documented, No as per HPI, No abnormal gait, No abnormal hearing, No abnormal movements, No abnormal speech, No behavioral changes, No burning sensations, No confusion, No convulsions, No disequilibrium, No dizziness, No localized weakness, No frequent falls, No headache(s), No lack of coordination, No loss of vision, No memory loss, No numbness, No other visual disturbances, No radicular pain, No restless legs, No sensory deficit, No syncope, No tingling, No tr emor(s), No weakness and No other Exam Const General: cooperative Orientation: alert and oriented x3 [facility] Head: normal to inspection Neck Neck: normal visual inspection and full ROM Chest Chest palpation & inspection: normal inspection of the chest Resp Effort & Inspection: normal respiratory effort Auscultation: clear to auscultation bilaterally Cardio Rate: regular rate Rhythm: regular rhythm GI Inspection: non-distended Palpation: soft and nontender Skin General: no rashes or lesions noted Neuro General: patient alert and patient oriented x3 Extrem General: full ROM Psych Appearance: grossly normal Mental Status: mental status grossly normal Assessment and Plan Assessment and Plan (1) Iron deficiency anemia: ?Status:?Acute ?Qualifiers: ?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 Qualified Code(s):? D50.0 - Iron deficiency anemia secondary to blood loss (chronic) (2) Guaiac positive stools: ?Status:?Acute ? ? ? Orders: Orders Colonoscopy Today ? ? EGD Today ? ? Plan Patient has iron deficiency anemia as well as heme positive stools.? I will perform an EGD and colonoscopy for the patient.? I explained endoscopy in detail to the patient.? I explained the risks including but not limited to stroke or heart attack with anesthesia, perforation of the GI tract, bleeding, infection.? I explained that any of these could necessitate further emergency surgery.? The patient understands and all questions were answered sufficiently.? The patient wishes to proceed with procedure. Todd Su MD Pager: [facility] [address] [place] [address] [address] [place] [address] Office: I have examined the patient and the H&P has been reviewed. There are no clinical changes since date of exam.
--- NOTE | 2022-08-15 10:00 | IMM_PTH ---
PATIENT: HEATHER HERNANDEZ LOC: EN U#:[id number] AGE/SX: 82/M ROOM: RE08/15/[address]: Dr. Todd Su MD : 1940 BED: DIS: 08/15/2022 SPEC #: [id number] RECD: 08/15/22 13:23 STATUS: GUERO REQ #: [id number] CASSANDRA: 08/15/22 10:[address]: Todd Su DEPT: IMMUNOHISTOCHEMISTRY RECD BY: Haley Dumont ENTERED: 08/15/22 13:24 SP TYPE: IMMUNO OTHR DR: Delfina Fleming DO Tissues: A - Stomach, NOS Procedures: H Pylori (initial) PHYSICIAN & INSTITUTION [place] [id number] SPECIMEN INFORMATION: Tissue Source: A ? Stomach polyp Clinical Info: Iron deficiency anemia, guaiac positive stool Specimen Number: [id number] CPT code: 18005 METHODOLOGY: Deparaffinized sections of prefer/formalin-fixed tissue or PAP/DQ stained slides are incubated with monoclonal/polyclonal antibodies/oligonucleotide probes. Localization is made via biotin free immunoperoxidase method. Appropriate controls are performed and reacted as expected. Results on target cell population are indicated in the following table: RESULTS: ANTIBODY / CLONE RESULT Block A H Pylori (polyclonal) negative These tests were developed and their performance characteristics determined by [facility]. They may not have been cleared or approved by the U.S. Food and Drug Administration. The FDA has determined that such clearance or approval is not necessary. The above immunohistochemical/dualISH markers are ordered and reviewed by the Pathologist. INTERPRETATION: A. Stomach polyp, biopsy: Negative for Helicobacter pylori organisms. AM:anton 08/16/2022
--- NOTE | 2022-08-15 10:00 | EGD_PTH ---
PATIENT: HEATHER HERNANDEZ LOC: EN U#:[id number] AGE/SX: 82/M ROOM: RE08/15/[address]: Dr. Todd Su MD : 1940 BED: DIS: 08/15/2022 SPEC #: [id number] RECD: 08/15/22 11:40 STATUS: GUERO REBeny #: [id number] CASSANDRA: 08/15/22 10:[address]: Todd Su DEPT: SURGICAL PATHOLOGY RECD BY: Manuela Golden ENTERED: 08/15/22 12:09 SP TYPE: EGD BIOPSY OTHR DR: Delfina Fleming DO Tissues: A - Stomach, NOS B - Cecum, NOS Procedures: Surgery Specimen Level IV HEADER OPERATION: Colonoscopy, EGD with polypectomy (MAC) PRE-OP DIAGNOSIS: Iron deficiency anemia, guaiac positive stool TISSUE SUBMITTED: A ? Stomach polyp, B ? Cecum biopsy MICROSCOPIC DIAGNOSIS A. Gastric polyp, biopsy: Hyperplastic polyp with ulceration and associated acute and chronic inflammation and granulation. See comment. B. Cecum, biopsy: No pathologic change. AM:anton 08/16/2022 COMMENT A. The results of immunohistochemistry for Helicobacter pylori will be reported separately ([id number]). MICROSCOPIC DESCRIPTION Slides are reviewed. GROSS DESCRIPTION A - Received in fixative is one container labeled with the patient's name and designated stomach polyp. The specimen consists of multiple irregular fragments of albarran tissue ranging in size from 0.5 to 2.2 cm. The larger fragment is sectioned and totally submitted along with the smaller fragments in two cassettes. B - Received in fixative is one container labeled with the patient's name and designated cecum biopsy. The specimen consists of one irregular fragment of light albarran soft tissue that measures 0.7 x 0.2 x 0.1 cm. The specimen is totally submitted in one cassette. / AM:anton 08/15/2022 TC:1 CPT: 61173 x2
--- NOTE | 2022-08-15 10:18 | OP.EGD_ITS ---
Patient Name: Chalino Franz Procedure Date: 08/15/2022 9:41 AM Date of : 1940 Age: 82 Procedure: Upper GI endoscopy Indications: Occult blood in stool Providers: Todd Su MD Medicines: Monitored Anesthesia Care Patient Profile: This is an 82 year old male. Refer to note in patient chart for documentation of history and physical. Complications: No immediate complications. Estimated blood loss: Minimal. Procedure: Pre-Anesthesia Assessment: - Prior to the procedure, a History and Physical was performed, and patient medications and allergies were reviewed. The patient's tolerance of previous anesthesia was also reviewed. The risks and benefits of the procedure and the sedation options and risks were discussed with the patient. All questions were answered, and informed consent was obtained. Prior Anticoagulants: The patient has taken aspirin, last dose was 5 days prior to procedure. After reviewing the risks and benefits, the patient was deemed in satisfactory condition to undergo the procedure. After obtaining informed consent, the endoscope was passed under direct vision. Throughout the procedure, the patient's blood pressure, pulse, and oxygen saturations were monitored continuously. The gastroscope was introduced through the mouth, and advanced to the third part of duodenum. The upper GI endoscopy was accomplished without difficulty. The patient tolerated the procedure well. Scope In: 9:50:29 AM Scope Out: 9:59:18 AM Total Procedure Duration Time 0 hours 8 minutes 49 seconds Findings: The esophagus was normal. The examined duodenum was normal. One large pedunculated polyp with no bleeding and no stigmata of recent bleeding was found in the stomach. The polyp was removed with a hot snare. Resection and retrieval were complete. To prevent bleeding post-intervention, two hemostatic clips were successfully placed. There was no bleeding at the end of the procedure. Impression: - Normal esophagus. - Normal examined duodenum. - One gastric polyp. Resected and retrieved. Clips were placed. Recommendation: - Discharge patient to home. - Resume previous diet. - Continue present medications. - Await pathology results. Procedure Code(s): --- Professional --- 30169, Esophagogastroduodenoscopy, flexible, transoral; with removal of tumor(s), polyp(s), or other lesion(s) by snare technique Diagnosis Code(s): --- Professional --- K31.7, Polyp of stomach and duodenum R19.5, Other fecal abnormalities CPT copyright 2017 [employer]. All rights reserved. The codes documented in this report are preliminary and upon clinic md associate review may be revised to meet current compliance requirements. Todd Su MD 08/15/2022 10:18:22 AM This report has been signed electronically. Number of Addenda: 0 Note Initiated On: 08/15/2022 9:41 AM
--- NOTE | 2022-08-15 10:18 | OP.CCLET_ITS ---
08/15/2022 Delfina Fleming, Re : Upper GI endoscopy procedure for Chalino Franz Dear Bernadette This procedure was performed on Monday, August 15, 2022. My impressions and recommendations are as follows: Impressions : - Normal esophagus. - Normal examined duodenum. - One gastric polyp. Resected and retrieved. Clips were placed. Recommendations : - Discharge patient to home. - Resume previous diet. - Continue present medications. - Await pathology results. My findings are described in the full procedure note, which is enclosed. If I can be of further assistance, please feel free to contact me at Doctor phone number(s): , Work: . Sincerely, Todd Su MD 08/15/2022 10:18:22 AM This report has been signed electronically.
--- NOTE | 2022-08-15 10:21 | OP.COLON_ITS ---
Patient Name: Chalino Franz Procedure Date: 08/15/2022 10:01 AM Date of : 1940 Age: 82 Procedure: Colonoscopy Indications: Gastrointestinal occult blood loss Providers: Todd Su MD Medicines: Propofol per Anesthesia Patient Profile: This is an 82 year old male. Refer to note in patient chart for documentation of history and physical. Last Colonoscopy: more than 10 years ago. Complications: No immediate complications. Procedure: Pre-Anesthesia Assessment: - Prior to the procedure, a History and Physical was performed, and patient medications and allergies were reviewed. The patient's tolerance of previous anesthesia was also reviewed. The risks and benefits of the procedure and the sedation options and risks were discussed with the patient. All questions were answered, and informed consent was obtained. Prior Anticoagulants: The patient has taken aspirin, last dose was 5 days prior to procedure. After reviewing the risks and benefits, the patient was deemed in satisfactory condition to undergo the procedure. After I obtained informed consent, the scope was passed under direct vision. Throughout the procedure, the patient's blood pressure, pulse, and oxygen saturations were monitored continuously. The colonoscope was introduced through the anus and advanced to the cecum, identified by appendiceal orifice and ileocecal valve. The colonoscopy was performed without difficulty. The patient tolerated the procedure well. The quality of the bowel preparation was good. Scope In: 10:02:27 AM Scope Withdrawal Time 0 hours 5 minutes 22 seconds Scope Out: 10:15:08 AM Total Procedure Duration Time 0 hours 12 minutes 41 seconds Findings: The entire examined colon appeared normal on direct and retroflexion views. An area of moderately congested mucosa was found in the cecum. This was biopsied with a cold forceps for histology. Impression: - The entire examined colon is normal on direct and retroflexion views. - No specimens collected. Recommendation: - Discharge patient to home. - Resume previous diet. - Continue present medications. - Repeat colonoscopy is not recommended due to current age (66 years or older) for screening purposes. Procedure Code(s): --- Professional --- 64400, Colonoscopy, flexible; with biopsy, single or multiple Diagnosis Code(s): --- Professional --- R19.5, Other fecal abnormalities CPT copyright 2017 [employer]. All rights reserved. The codes documented in this report are preliminary and upon stamp classifier review may be revised to meet current compliance requirements. Todd Su MD 08/15/2022 10:20:21 AM This report has been signed electronically. Number of Addenda: 0 Note Initiated On: 08/15/2022 10:01 AM
--- NOTE | 2022-08-15 10:21 | OP.CCLET_ITS ---
08/15/2022 Delfina Fleming, Do Re : Colonoscopy procedure for Chalino Franz Dear Bernadette This procedure was performed on Monday, August 15, 2022. My impressions and recommendations are as follows: Impressions : - The entire examined colon is normal on direct and retroflexion views. - No specimens collected. Recommendations : - Discharge patient to home. - Resume previous diet. - Continue present medications. - Repeat colonoscopy is not recommended due to current age (66 years or older) for screening purposes. My findings are described in the full procedure note, which is enclosed. If I can be of further assistance, please feel free to contact me at Doctor phone number(s): , Work: . Sincerely, Todd Su MD 08/15/2022 10:20:21 AM This report has been signed electronically.
== END 2022-08-15 11:15 | disposition home or self-care (01) ==
LOC: EN 08:43 → AC 08:47
PROVIDERS: PCP Family Medicine; Referring Provider Family Medicine; Visit Provider Surgery
PROC: 0DJD8ZZ Inspection of Lower Intestinal Tract, Via Natural or Artificial Opening Endoscopic (ICD-10-PCS; CPT 45378; principal; 2022-08-15 09:55)
DX: Z12.11 Encounter for screening for malignant neoplasm of colon (principal); D50.9 Iron deficiency anemia, unspecified; R19.5 Other fecal abnormalities; K31.7 Polyp of stomach and duodenum; K21.9 Gastro-esophageal reflux disease without esophagitis; E78.5 Hyperlipidemia, unspecified; Z79.82 Long term (current) use of aspirin; Z79.899 Other long term (current) drug therapy
CPT/HCPCS: 45380; 43251; 88305; 88342; J7120; J2405